=== PATIENT | male | born 1975 | race Caucasian/White ===

== ENCOUNTER → 2018-01-16 13:34 | Outpatient (CLI) | payer OTHER, SELFPAY ==
--- NOTE | 2018-01-16 13:40 | VDLE_ITS ---
Reason For Study: LEG SWELLING RIGHT LEFT CFV is compressible, spontaneous, phasic, CFV is compressible, spontaneous, phasic, competent and demonstrates normal competent, and demonstrates normal augmentation. augmentation. FV is compressible, spontaneous, phasic, FV is compressible, spontaneous, phasic, competent and demonstrates normal competent and demonstrates normal augmentation. augmentation. POP V is compressible, spontaneous, phasic, POP V is compressible, spontaneous, phasic, competent and demonstrates normal competent and demonstrates normal augmentation. augmentation. T/P Trunk is compressible. T/P Trunk is compressible. PTV is compressible. PTV is compressible. RT PerV is compressible. LT PerV is compressible. SFJ is INCOMPETENT with reflux greater SFJ is INCOMPETENT with reflux greater than .5 sec than .5 sec GSV is INCOMPETENT in prox thigh with reflux GSV is INCOMPETENT in prox thigh with reflux greater than .5 sec and diameter of .25 greater than .5 sec and diameter of .53 x .25 cm x .65 cm. GSV is partially compressible with GSV becomes diminutive from mid thigh to bright intraluminal echoes consistant with ankle unable to assess chronic clot. GSV becomes diminutive mid SSV is INCOMPETENT with reflux greater thigh to ankle. Unable to assess. than .5 sec and diameter of .25 x .26 cm. SSV is competent. Procedure Exam performed in department. Interpretation Summary Deep veins of the lower extremities are bilaterally patent and compressible segmentally. There is no evidence of deep vein thrombosis on either side. Valvular competence appears intact within the proximal deep venous systems bilaterally. Sapheno-femoral junctions are bilaterally incompetent . The greater saphenous veins are incompetent in the proximal thighs bilaterally. The right greater saphenous vein is diminutive from the right mid-thigh to the ankle, and too small to assess competency. The left greater saphenous vein is diminutive from the left mid-thigh to the ankle, is too small to assess competency, and demonstrates chronic venous changes. The right small saphenous vein is patent and incompetent. The left small saphenous vein is patent and competent. Ordering Physician: JASMINE MANNING Referring Physician: Jasmine Manning Performed By: Marcela Rdz RVT
--- NOTE | 2018-01-16 14:42 | RAD_ITS ---
STUDY: X-RAY - PELVIS AND LEFT HIP REASON FOR EXAM: Male, 42 years old. Left hip pain TECHNIQUE: Radiological exam, hip, unilateral, with pelvis when performed; 2 or 3 views. COMPARISON: None. FINDINGS: There is a non-specific bowel gas pattern. Normal visualized soft tissue structures. Normal bilateral iliac wings, sacroiliac joints and visualized sacrum. Normal bilateral superior and inferior pubic rami. Normal pubic symphysis. Normal bilateral ischial tuberosities. Normal visualized femoral head. Normal acetabulum. Normal hip joint. RAD/Hip 2-3 Views with Pelvis IMPRESSION: Normal x-ray examination of the pelvis and hip. Electronically Signed: Daniel Abarca MD at 15:24 EDT , Service support ,
== END ==
PROVIDERS: Visit Provider Nurse Practitioner
DX: I73.9 Peripheral vascular disease, unspecified (principal); M25.552 Pain in left hip; L03.90 Cellulitis, unspecified; R60.9 Edema, unspecified
CPT/HCPCS: 73502; 93970

== ENCOUNTER → 2018-10-19 21:04 | Outpatient (CLI) | payer OTHER, SELFPAY ==
[2018-08-13 17:59] VITALS: BMI 31.3
[2018-10-19 21:15] LABS: Absolute Lymphocyte Count 1.35 X10^3/ul (0.83-4.51); Absolute Neutrophil Count 7.5 X10^3/uL (2.0-7.7); Basophil# 0.03 X10^3/uL; Basophil% 0.3 % (0-1); Eosinophil# 0.45 X10^3/uL; Eosinophils% 4.5 % (0-5); Hematocrit 42.4 % (40-54); Hemoglobin 14.2 g/dl (13.0-16.5); Lymphocyte # 1.35 X10^3/ul (4.0); Lymphocyte % 13.6 % (19-41); Mean Corp Hgb Conc 33.5 g/gl (32-36); Mean Corpuscular Hgb 27.2 pg (27.0-32.0); Mean Corpuscular Volume 81.1 fL (80-94); Mean Platelet Vol. 11.7 fl (6.2-12.0); Monocyte# 0.61 X10^3/uL; Monocyte% 6.2 % (0-10); Neutrophil # 7.45 X10^3/uL (2.7-7.7); Neutrophil % 75.3 % (47-70); POSITIVE COUNT NO; POSITIVE DIFFERENTIAL NO; POSITIVE MORPHOLOGY NO; Platelet Count 162 K/mm3 (150-450); RBC Distribution Width CV 13.9 % (11.6-14.6); RBC Distribution Width SD 40.9 fl (35.1-43.9); Red Blood Count 5.23 M/mm3 (4.6-6.2); White Blood Count 9.9 K/mm3 (4.4-11.0)
[2018-10-19 21:26] LABS: ALB/GLOB Ratio 1.1 RATIO (0.9-2.4); AST(SGOT) 21 U/L (15-37); Alanine Aminotransfer ALT/SGPT 32 U/L (16-61); Alkaline Phosphatase 84 U/L (45-117); Anion Gap 8 (5-15); BUN 20 mg/dL (7-18); BUN/Creat Ratio 16.9 RATIO (10-20); Calcium,Total 9.5 mg/dL (8.5-10.1); Chloride 102 mmol/L (98-107); Cholesterol 126 mg/dL (200); Creatinine, Serum 1.18 mg/dL (0.70-1.30); EST Glomerular Filtration Rate 72 mL/min (>60); Est Glom Filt Rate - Afr Amer 87 mL/min (>60); Globulin 3.5 g/dL (2.2-4.2); Glucose 149 mg/dL (74-106); High Density Lipoprotein 54 mg/dL; Potassium 3.7 mmol/L (3.5-5.1); Protein, Total 7.5 g/dL (6.4-8.2); Sodium Level 139 mmol/L (136-145); Triglycerides 234 mg/dL; Very Low Density Lipoprotein 47 mg/dL (5-40)
--- OUTSIDE RECORDS SUMMARY | 2019-01-23 07:52 | XMS RPT_ITS ---
:1975 Author Organization [facility] Address [address] [place] [address] Phone Care Team Providers Name Role Phone Rio KINSEY, Pa Young Unavailable Reason for Visit Reason For Visit Description Start Date New - 1st visit with practice Preliminary reason for visit data, not yet signed by the author as of left hip pain Preliminary reason for visit data, not yet signed by the author as of Chief Complaint Chief Complaint Description Start Date left hip pain Preliminary chief complaint data, not yet signed by the author as of Instructions Instruction Description Start Date Patient advised to follow-up with Primary Care Physician for BMI management. Plan of Care Type Date Detail Appointment 02:00 PM Pa Pate MD, [facility], [address], Medications Medication Instructions Start Stop Generic Name NDC Provider Date Date ACETAMINOPHEN 1 tablet daily / ACETAMINOPHEN [id number] Janett EXTRA STRENGTH as needed for 26 [employer] 500 MG TABS pain VITAMIN D3 CAPS 1 capsule daily / CHOLECALCIFEROL [id number] Janett (as needed) 26 CAPS [employer] BENICAR HCT 1 tablet daily / OLMESARTAN [id number] Janett 20-12.5 MG TABS 26 MEDOXOMIL-HCTZ [employer] ROSUVASTATIN 1 tablet daily / ROSUVASTATIN [id number] Janett CALCIUM 10 MG 26 CALCIUM [employer] TABS METFORMIN HCL 1 tablet twice / METFORMIN HCL [id number] Janett 1000 MG TABS daily 26 [employer] Conditions or Problems Problem Name Problem Onset Status Entry Provider Comment Standard Annotate Code Date Date Description Trochanteric [id number] Active Pa M Trochanteric bursitis, left ( Rio bursitis hip CT) Allergies, Adverse Reactions, Alerts Allergy Name Reaction Start Date Severity Status Provider Description WHEAT (childhood Critical Active Janett Winters reaction) [employer] Social History Concept Description Observation Name Observation Value Units Start Date How many days of EXERCISEFREQ 7 days per week moderate to strenuous exercise, like a brisk walk, did you do in the last 7 days? Preliminary social history data, not yet signed by the author as of Vital Signs Date Name Value Unit Description BMI (Body Mass 28.35 kg/m2 Body Mass Index Index) [Ratio] Preliminary vital sign data, not yet signed by the author as of BP Diastolic 81 mm[Hg] blood pressure, diastolic Preliminary vital sign data, not yet signed by the author as of BP Systolic 136 mm[Hg] blood pressure, systolic Preliminary vital sign data, not yet signed by the author as of Heart Rate 85 /min pulse rate E&M Preliminary vital sign data, not yet signed by the author as of Height 74 [in_us] height E&M Preliminary vital sign data, not yet signed by the author as of Height 188 cm height in centimeters E&M Preliminary vital sign data, not yet signed by the author as of Weight Measured 220 [lb_av] weight E&M Preliminary vital sign data, not yet signed by the author as of Weight Measured 100 kg weight in kilograms E&M Preliminary vital sign data, not yet signed by the author as of Results Date Name Value Unit Range Flag Description Office Visit: New - 1st visit with practice, Rm: 5 MEDS REVIEW Done Documentation of current medications (procedure) Preliminary observation data, not yet signed by the author as of Preliminary observation data, not yet signed by the author as of XRAY HX of the left hip on xray history 01/16/2018 at [facility] Preliminary observation data, not yet signed by the author as of Clinical Summary: [facility] account number Clinical Lists Update: Preload Extended SMOK STATUS never smoker Tobacco smoking status KSIS Procedures Code Procedure Name Date Entry Date CPT-10428 Major Joint or Bursa injection G8730 Pain assessment documented as positive - follow-up documented G8427 Current medications documented 1036F Tobacco screening was negative - non user G8417 BMI documented as above normal parameters - follow-up documented G8783 Blood pressure within normal parameters - no follow-up required [facility]-[id number] Patient Encounter Medications Administered No information available. Immunizations No information available. Advance Directives There may be information available, but it has not been provided by the sender. Assessments There may be information available, but it has not been provided by the sender. Review of Systems There may be information available, but it has not been provided by the sender. Family History There may be information available, but it has not been provided by the sender. History of Past Illness There may be information available, but it has not been provided by the sender. History of Present Illness There may be information available, but it has not been provided by the sender.
--- OUTSIDE RECORDS SUMMARY | 2019-01-23 07:52 | XMS RPT_ITS ---
:1975 Author Organization OH[facility] Care Team Providers Name Role Phone Jasmine Manning ANTIQUE COLLECTOR-C Attending Unavailable Jasmine Manning ANTIQUE COLLECTOR-C Referring Unavailable Primay Care Physicia, No Primary Care Unavailable Jasmine Manning ANTIQUE COLLECTOR-C Attending Unavailable Primay Care Physicia, No Primary Care Unavailable Jasmine Manning ANTIQUE COLLECTOR-C Referring Unavailable Paty Bess Attending Unavailable Loid[place], Atka Attending Unavailable Jasmine Manning ANTIQUE COLLECTOR-C Referring Unavailable PROBLEMS PROBLEMS DATE TYPE CONDITION / CODE ATTENDING STATUS SOURCE 11/28/2018 Unknown I10 - Essential Loida, Quang Active [place] (primary) Community hypertension / Hospital I10(ICD-10) Repository 11/28/2018 Unknown E78.5 - Loida, Atka Active [place] Hyperlipidemia, Community unspecified / Hospital E78.5(ICD-10) Repository 11/28/2018 Unknown R60.0 - Localized Loida, Quang Active [place] edema / Community R60.0(ICD-10) Hospital Repository 10/22/2018 Unknown E78.00 - Pure Manning, Active [place] hypercholesterolem Jasmine ANTIQUE COLLECTOR-C Community ia, unspecified / Hospital E78.00(ICD-10) Repository 06/22/2018 Active Pain in right NA Active [facility] shoulder / Other [place] M25.511(ICD-10) Repository 06/22/2018 Active Syncope and NA Active [facility] collapse / Other [place] R55(ICD-10) Repository PROCEDURES PROCEDURES No Procedure Records FoundRESULTS RESULTS CARDIOLOGY VISIT Observed: 11/28/2018 Status: F Source: ADDIS REPORT 4:48 PM [facility] REPOSITORY [facility] [address] [place] [address]. [address] [place] [address] OFFICE VISIT Date of Service: 11/28/18 MR#: [id number] Acct: [id number] Name: PHI COURTNEY Rep #: [id number] : 1975 Provider: Quang Mariscal MD Age/Sex: 43/M [facility] [facility] Status: Signed HPI HPI Chief Complaint: Initial visit Details: PHI COURTNEY, is a 43 M who presents to the office today for an initial evaluation. He is a gentleman with a history of hypertension, hyperlipidemia or diabetes mellitus as well as cerebral palsy. He presents for an initial evaluation he has been having problems with pedal edema especially involving his left leg. He did have some vein work done a couple years ago. He had a history of vein stripping. He has had no neck arm or jaw discomfort suggest angina he has had occasional chest discomfort. This does not appear to be anginal in origin. He has not had any dizziness or diaphoresis no near syncope or syncope. His physical exam here today demonstrates clear lung funes regular rate and rhythm mild pedal edema on his left leg. His electrocardiogram demonstrates normal sinus rhythm with a rate of 79 bpm and no acute changes. Intake Vital Signs11/28/18 Height 6 ft 2 in 11/28/18 Weight: 236 lb 11/28/18 Body Mass Index (BMI) 30.2 11/28/18 Blood Pressure 120/70 11/28/18 Respiratory Rate 16 11/28/18 Pulse Rate 78 Intake Visit Reasons: PCP ref'd [facility] edema (needs late appt) Allergies No Known Allergies Allergy (Verified 11/28/18 15:23) Medications albuterol sulfate HFA 90 mcg/actuation aerosol inhaler 2 puff INHALATION Q6H PRN 06/26/18 [History Confirmed 06/26/18] metformin ER 1,000 mg tablet,extended release 24hr 1,000 mg PO QDAY 06/26/18 [History Confirmed 06/26/18] methocarbamol 750 mg tablet 750 mg PO ONCE 06/26/18 [History Confirmed 06/26/18] miconazole nitrate 2 % topical powder 1 applic TOPICAL QDAY 06/26/18 [History Confirmed 06/26/18] olmesartan 20 mg tablet 20 mg PO QDAY 06/26/18 [History Confirmed 06/26/18] polymyxin B sulfate 10,000 unit-trimethoprim 1 mg/mL eye drops 1 drp OPHTHALMIC Q3H 06/26/18 [History Confirmed 06/26/18] rosuvastatin 10 mg tablet 10 mg PO QDAY 06/26/18 [History Confirmed 06/26/18] tramadol 50 mg tablet 50 mg PO Q6H 06/26/18 [History Confirmed 06/26/18] amoxicillin 875 mg-potassium clavulanate 125 mg tablet 1 tab PO BID #20 tab 08/13/18 [Rx Confirmed 08/13/18] [facility] Medical History Essential (primary) hypertension (Chronic) Athletes foot (Chronic) Cellulitis (Chronic) Cerebral palsy (Chronic) Hyperlipidemia (Chronic) Obesity (Chronic) Surgical History History of incision and drainage (Resolved 2013) History of vein stripping (Resolved) S/p bilateral myringotomy with tube placement (Resolved) Family History Mother Diabetes Social History Smoking Status: Never smoker alcohol intake: current details: <two beers per week substance use type: does not use ROS Const Const: Negative for fatigue, weakness, difficulty sleeping, frequent falls, excessive sweating or headache(s) Eyes Eyes: Negative for loss of peripheral vision, transient loss of vision, blurry vision, tunnel vision or double vision ENT ENT: Negative for headache(s), dizziness, Nosebleed/epistaxis or balance problems Cardio Chest Pain: No Edema: Bilateral (non pitting L>R) Muscle aches with walking: None Resp Respiratory: Negative for SOB with activity, SOB at rest, SOB orthopnea\SOB lying down, paroxysmal nocturnal dyspnea or Cough GI GI: Negative nausea, heartburn, black,tarry stools or vomiting : Negative for hematuria Musc Musc: Negative for balance problems, muscle aches/ myalgia, muscle weakness or joint pain Skin Skin: Negative non-healing lesions, unusual bruising or rash Neuro Neuro: Positive for syncope (syncopal episode in 2017 24 hours after donating blood) and other (Had a syncopal episode several years ago after doanting blood); negative for weakness, frequent falls, headache(s), blurry vision, double vision, dizziness, lightheadedness, orthostatic symptoms, near syncope or lack of coordination [place] Hematologic/Lymphatic: Negative for easy bruising or easy bleeding Endo Endo: Negative for fatigue, excessive sweating or increased thirst/drinking Psych Psych: Negative for anxiety or depression Allergy Allergy/Immunology: Negative for hives, Negative for rash Cardiology Exam Const Appearance: cooperative, healthy appearing, well developed, well groomed and no acute distress Nutritional Appearance: well nourished and average body habitus Orientation: alert, awake and oriented x3 Head Head: normal to inspection, normocephalic and atraumatic Ears: hearing grossly normal bilaterally and external ears normal Nose: external nose normal, nasal mucous membranes and turbinates normal, nares normal, septum normal, no nasal discharge Face and Sinus: face symmetric Mouth: oral mucosae normal, tongue normal, oropharynx normal and moist mucous membranes Teeth and gingiva: dentition normal Throat: posterior oropharynx normal, tonsils normal and uvula midline Eyes General: appearance normal, both eyes and all related structures Eyelids: eyelids normal Conjunctivae: conjunctivae normal Pupils: PERRL, normal by confrontation and accommodation normal EOM: EOM intact bilaterally Neck Neck: normal visual inspection, trachea midline and no JVD JVD: +5 Carotids: normal carotid upstroke and bounding pulses Chest Chest inspection: normal inspection of the chest, symmetric chest movement and normal respiratory effort Auscultation: Bilateral: Clear to Auscultation Cardio Palpation: normal PMI Rate: regular rate Rhythm: regular rhythm Heart sounds: S1 normal, S2 normal and normal, physiologic split S2; negative rub, gallop or murmur GI GI: normal to inspection, soft, no hepatosplenomegaly and bowel sounds present Neuro General: alert, awake, oriented x3, no focal sensory deficit, gait normal and moves all extremities Skin Skin: no rashes or lesions noted Extremities Pulses: Normal: Right Femoral Pulse, Left Femoral Pulse, Right Dorsalis Pedis Pulse, Left Dorsalis Pedis Pulse, Right Posterior Tibial Pulse, Left Posterior Tibial Pulse, Right Radial Pulse, Left Radial Pulse Lower Extremity Edema: None: Bilateral Musculoskel Musculoskeletal: No joint tenderness Psych Psychological: normal affect Assessment AND Plan 1. Pedal edema R60.0 Plan He does have pedal edema which I suspect is likely secondary to his venous stripping. I have suggested JOSE hose stockings knee-high for him and for him to wear this as much as possible. He can have a refill for the above when the others are less effective. I would recommend an echocardiogram to assess his left ventricular function and pulmonary pressures though I do not think that his heart is playing a significant role in the above. Orders Orders: 2. Essential (primary) hypertension I10 Plan He does have a history of hypertension which is well controlled on the olmesartan this will be continued without making any changes. Orders Orders: 3. Hyperlipidemia E78.5 Plan He does have a history of diabetes as well as hyperlipidemia he remains on a statin which will be continued his most recent lipid profile demonstrated total cholesterol 126, triglycerides of 234, LDL of 25 and HDL of 54. I have advised him to watch his carbohydrate intake. No other changes will be made. Orders Orders: Plan Detail Follow Up prn Coding Level of Care Code Off vis,new,level 4 Diagnoses Pedal edema R60.0 Essential (primary) hypertension I10 Hyperlipidemia E78.5 Coding Level of Care Code Off vis,new,level 4 Diagnoses Pedal edema R60.0 Essential (primary) hypertension I10 Hyperlipidemia E78.5 Supplemental Info Supplemental Information Labs LDL Cholesterol 25 mg/dL (0-130) 10/19/18 HDL Cholesterol 54 mg/dL (40-) 10/19/18 Triglycerides 234 mg/dL (-199) H 10/19/18 VLDL Cholesterol 47 mg/dL (5-40) H 10/19/18 Diagnostics Electrocardiogram 11/28/18 Venous Doppler Study 01/16/18 11/28/18 1648 <Electronically signed by Quang Mariscal MD> Date Quang Mariscal MD Cosigner Signature: Date (if applicable) CC: TAIWO Manning CBC W/DIFF, AUTOMATED Collected: 10/19/2018 Status: F Source: [place] 4:30 PM [facility] REPOSITORY TYPE CODE TESTS RESULT OUT OF RANGE REFERENCE UNITS LAB L100.1000 4.4-11.0 K/mm3 Normal WBC 9.9 LAB L100.1200 4.6-6.2 M/mm3 Normal RBC 5.23 LAB L100.1300 13.0-16.5 g/dl Normal HGB 14.2 LAB L100.1400 40-54 % Normal HCT 42.4 LAB L100.1500 80-94 fL Normal MCV 81.1 LAB L100.1600 27.0-32.0 pg Normal MCH 27.2 LAB L100.1700 32-36 g/gl Normal MCHC 33.5 LAB L100.1810 11.6-14.6 % Normal RDW CV 13.9 LAB L100.1820 35.1-43.9 fl Normal RDW SD 40.9 LAB L100.1900 150-450 K/mm3 Normal PLT 162 LAB L100.2000 6.2-12.0 fl Normal MPV 11.7 LAB L100.2100 47-70 % High NEUT% 75.3 LAB L100.2200 19-41 % Low LY% 13.6 LAB L100.2300 0-10 % Normal MONO% 6.2 LAB L100.2400 0-5 % Normal EO% 4.5 LAB L100.2500 0-1 % Normal BASO% 0.3 LAB L100.2550 0.0-0.9 % Normal IM GRAN % 0.100 Result Comment: IG% - Immature Granulocytes (promyelocytes, myelocytes and metamyelocytes) > 1% indicates that a LEFT SHIFT is Present. LAB L100.2620 2.0-7.7 X10 3/uL Normal Absolute Neut 7.5 LAB L100.2720 0.83-4.51 X10 3/ul Normal Absolute Lymph 1.35 Performed By: #### L100.0100 #### [facility] [place], [address] COMPREHENSIVE METABOLIC Collected: 10/19/2018 Status: F Source: LUC[facility] 4:30 PM [facility] REPOSITORY TYPE CODE TESTS RESULT OUT OF RANGE REFERENCE UNITS LAB L501.0100 74-106 mg/dL High GLU 149 Result Comment: Fasting Glucose result greater than or equal to 126 mg/dL suggests DIABETES MELLITUS per A.D.A. criteria. Please note revised GLUCOSE reference range effective 2017. LAB L501.1000 7-18 mg/dL High BUN 20 LAB L501.1100 0.70-1.30 mg/dL Normal CREAT,SERUM 1.18 Result Comment: The validity of the calculated GFR AND GFRAA in patients over 70 years has not been determined. Clinical correlation is essential. LAB L501.1110 >60 mL/min Normal EST GFR 72 Result Comment: Non- GFR Calc LAB L501.1115 >60 mL/min Normal EST GFR - AA 87 Result Comment: GFR Calc LAB L501.1300 10-20 RATIO Normal BUN/CRE 16.9 LAB L501.1500 6.4-8.2 g/dL T Normal PROT 7.5 LAB L501.1800 3.2-5.0 g/dL Normal ALB 4.0 LAB L501.1950 2.2-4.2 g/dL Normal GLOB 3.5 LAB L501.2000 0.9-2.4 RATIO Normal A/G 1.1 LAB L501.2200 8.5-10.1 mg/dL CA Normal 9.5 LAB L501.4100 15-37 U/L Normal AST 21 LAB L501.4305 45-117 U/L Normal ALK P 84 LAB L501.4405 16-61 U/L Normal ALT 32 LAB L501.4600 0.20-1.00 mg/dL T Normal BILI 0.70 LAB L501.5300 136-145 mmol/L NA Normal 139 LAB L501.5600 3.5-5.1 mmol/L K Normal 3.7 LAB L501.5900 98-107 mmol/L CL Normal 102 LAB L501.6100 21.0-32.0 mmol/L Normal CO2 29.0 LAB L501.6200 5-15 Normal GAP 8 Performed By: #### L500.4050, L500.4100 #### [facility] [address] [place], [place], [address] LIPID PROFILE Collected: 10/19/2018 Status: F Source: [facility] 4:30 PM [facility] REPOSITORY TYPE CODE TESTS RESULT OUT OF RANGE REFERENCE UNITS LAB L501.4900 200 mg/dL Normal CHOL 126 Result Comment: <200 mg/dL Desirable 200-240 mg/dL Borderline >240 mg/dL High Risk LAB L501.5000 mg/dL High TRIG 234 Result Comment: The drugs N-Acetylcysteine and Metamizole may falsely depress this assay. Serum Triglycerides Reference Interval Normal <150 mg/dL Borderline high 150 - 199 mg/dL High 200 - 499 mg/dL Very High > or = 500 mg/dL LAB L501.6400 mg/dL Normal HDL 54 Result Comment: The drugs N-Acetylcysteine and Metamizole may falsely depress this assay. Reference Range HDL <40 mg/dL Low HDL Cholesterol HDL >or= 60 mg/dL High HDL Cholesterol LAB L501.6500 0-130 mg/dL Normal LDL 25 LAB L501.6600 5-40 mg/dL High VLDL 47 Performed By: #### L500.4050, L500.4100 #### [facility] [address] [facility] [place], [place], [address] OFFICE VISIT Observed: 08/13/2018 Status: F Source: ADDIS 9:20 PM [facility] REPOSITORY After Hours [facility] [address] [place] [address] OFFICE VISIT Date of Service: 08/13/18 MR#: [id number] Acct: [id number] Name: PHI COURTNEY Rep #: [id number] : 1975 Provider: TAIWO Manning Age/Sex: 43/M Location: [facility] Status: Signed Intake Vital Signs08/13/18 Height 6 ft 2 in 08/13/18 Weight: 244 lb Intake Visit Reasons: sick for a while Chief Complaint: congestion, runny nose, headache, tired, coughing Allergies No Known Allergies Allergy (Verified 06/26/18 12:16) Medications albuterol sulfate HFA 90 mcg/actuation aerosol inhaler 2 puff INHALATION Q6H PRN 06/26/18 [History Confirmed 06/26/18] metformin ER 1,000 mg tablet,extended release 24hr 1,000 mg PO QDAY 06/26/18 [History Confirmed 06/26/18] methocarbamol 750 mg tablet 750 mg PO ONCE 06/26/18 [History Confirmed 06/26/18] miconazole nitrate 2 % topical powder 1 applic TOPICAL QDAY 06/26/18 [History Confirmed 06/26/18] olmesartan 20 mg tablet 20 mg PO QDAY 06/26/18 [History Confirmed 06/26/18] polymyxin B sulfate 10,000 unit-trimethoprim 1 mg/mL eye drops 1 drp OPHTHALMIC Q3H 06/26/18 [History Confirmed 06/26/18] rosuvastatin 10 mg tablet 10 mg PO QDAY 06/26/18 [History Confirmed 06/26/18] tramadol 50 mg tablet 50 mg PO Q6H 06/26/18 [History Confirmed 06/26/18] amoxicillin 875 mg-potassium clavulanate 125 mg tablet 1 tab PO BID #20 tab 08/13/18 [Rx Confirmed 08/13/18] PFSH Medical History Athletes foot (Acute) Cellulitis (Acute) Cerebral palsy (Acute) Hyperlipidemia (Acute) Hypertension (Chronic) Surgical History S/p bilateral myringotomy with tube placement (Acute) Family History Mother Diabetes Social History Smoking Status: Never smoker alcohol intake: current details: <two beers per week substance use type: does not use HPI HPI (General) HPI Chief Complaint: congestion, runny nose, headache, tired, coughing HPI: PHI COURTNEY, is a 43 M who presents to the office today for not feeling well ROS Const Constitutional: Positive for headache(s), fatigue and anorexia ENT ENT: Positive for headache(s), ear pain (Right), nasal congestion, post nasal drip, nasal discharge, hoarseness, facial pain and sinus pain Resp Respiratory: Positive for cough (yellow adn clear) Cough: Yes productive Musc Musculoskeletal: Positive for back pain Neuro Neurology: Positive for headache(s) Endo Endo: Yes fatigue Exam Const Constitutional: Yes cooperative, Yes ill appearing Nutritional Appearance: Yes well nourished Orientation: Yes oriented x3 HENMT Head: Yes normocephalic Ear: Yes hearing grossly normal bilaterally TM-Right: normal TM-Left: red Pinna-Right: within normal limits Pinna-Left: within normal limits Face: Yes normal facial exam, Yes sinuses nontender, Yes tenderness Nose: Yes external nose normal Eyes General: Yes appearance normal, both eyes and all related structures Resp Effort AND Inspection: Yes normal respiratory effort Auscultation: Yes clear to auscultation bilaterally and bronchial breath sounds Cardio Palpitation: Yes normal PMI Rate: Yes regular rate Rhythm: Yes regular rhythm GI Inspection: Yes normal to inspection Palpation: Yes soft and no hepatosplenomegaly Skin General: no rashes or lesions noted Extrem General: Yes normal to inspection Neuro General: Yes oriented x3 Psych Appearance: Positive grossly normal Mood: Positive congruent mood Affect: Positive normal affect Assessment AND Plan Problems 1. Acute otitis media, left H66.92 2. Acute non-recurrent maxillary sinusitis J01.00 3. Cough with fever R05; R50.9 Patient Instructions Take the antibiotics till gone with food or after eating Push the fluids well Use the inhaler as needed for coughing or Shortness of breath. Off work provided follow up as needed use Pseudafed 30 mg take 2 2 x a day for the postnasal drip and the congestion headaches / Medications New: Coding Level of Care Code Off vis,est,level 3 Diagnoses Acute otitis media, left H66.92 Acute non-recurrent maxillary sinusitis J01.00 Chronicity: acute Recurrence: non-recurrent Cough with fever R05; R50.9 08/13/182119 <Electronically signed by Jasmine JACOB> Date Jasmine JACOB CC: OFFICE VISIT Observed: 07/05/2018 Status: F Source: LUCINDA 4:07 PM [facility] REPOSITORY After Hours [facility] [address] [place] [address] OFFICE VISIT Date of Service: 06/27/18 MR#: [id number] Acct: [id number] Name: PHI COURTNEY Rep #: [id number] : 1975 Provider: TAIWO Manning Age/Sex: 42/M Location: [place] Status: Signed Intake Vital Signs06/27/18 Height 6 ft 2 in 06/27/18 Weight: 236 lb Intake Visit Reasons: F/U [place]KEY[place] Allergies No Known Allergies Allergy (Verified 06/26/18 12:16) Medications albuterol sulfate HFA 90 mcg/actuation aerosol inhaler 2 puff INHALATION Q6H PRN 06/26/18 [History Confirmed 06/26/18] metformin ER 1,000 mg tablet,extended release 24hr 1,000 mg PO QDAY 06/26/18 [History Confirmed 06/26/18] methocarbamol 750 mg tablet 750 mg PO ONCE 06/26/18 [History Confirmed 06/26/18] miconazole nitrate 2 % topical powder 1 applic TOPICAL QDAY 06/26/18 [History Confirmed 06/26/18] olmesartan 20 mg tablet 20 mg PO QDAY 06/26/18 [History Confirmed 06/26/18] polymyxin B sulfate 10,000 unit-trimethoprim 1 mg/mL eye drops 1 drp OPHTHALMIC Q3H 06/26/18 [History Confirmed 06/26/18] rosuvastatin 10 mg tablet 10 mg PO QDAY 06/26/18 [History Confirmed 06/26/18] tramadol 50 mg tablet 50 mg PO Q6H 06/26/18 [History Confirmed 06/26/18] PFSH Medical History Athletes foot (Acute) Cellulitis (Acute) Cerebral palsy (Acute) Hyperlipidemia (Acute) Hypertension (Chronic) Surgical History S/p bilateral myringotomy with tube placement (Acute) Family History Mother Diabetes Social History Smoking Status: Never smoker alcohol intake: current details: <two beers per week substance use type: does not use HPI HPI (General) HPI HPI: PHI COURTNEY, is a 42 M who presents to the office today for a workmans comp problem and did not tell the nurse at registration what it was for .We do not do workmans comp therefore unable to see 07/05/18 6517 <Electronically signed by Jasmine JACOB> Date Jasmine JACOB CC: OFFICE VISIT Observed: 06/26/2018 Status: F Source: LUCINDA 4:12 PM [facility] REPOSITORY After Hours [facility] [address] [place] [address] OFFICE VISIT Date of Service: 06/26/18 MR#: [id number] Acct: [id number] Name: PHI COURTNEY Rep #: [id number] : 1975 Provider: TAIWO Huffman Age/Sex: 42/M Location: [place] Status: Signed Intake Vital Signs06/26/18 Blood Pressure 142/92 06/26/18 Blood Pressure Position Standing 06/26/18 Blood Pressure 138/94 Eye Acuity Left eye w/o correction: 20/20 Right eye w/o correction: 20/20 Both eyes w/o correction: 20/20 Intake Visit Reasons: PINK EYE Chief Complaint: Patient here with pink eye symptoms. Is patient in pain?: No Allergies No Known Allergies Allergy (Verified 06/26/18 12:16) Medications albuterol sulfate HFA 90 mcg/actuation aerosol inhaler 2 puff INHALATION Q6H PRN 06/26/18 [History Confirmed 06/26/18] metformin ER 1,000 mg tablet,extended release 24hr 1,000 mg PO QDAY 06/26/18 [History Confirmed 06/26/18] methocarbamol 750 mg tablet 750 mg PO ONCE 06/26/18 [History Confirmed 06/26/18] miconazole nitrate 2 % topical powder 1 applic TOPICAL QDAY 06/26/18 [History Confirmed 06/26/18] olmesartan 20 mg tablet 20 mg PO QDAY 06/26/18 [History Confirmed 06/26/18] polymyxin B sulfate 10,000 unit-trimethoprim 1 mg/mL eye drops 1 drp OPHTHALMIC Q3H 06/26/18 [History Confirmed 06/26/18] rosuvastatin 10 mg tablet 10 mg PO QDAY 06/26/18 [History Confirmed 06/26/18] tramadol 50 mg tablet 50 mg PO Q6H 06/26/18 [History Confirmed 06/26/18] [facility] Medical History Athletes foot (Acute) Cellulitis (Acute) Cerebral palsy (Acute) Hyperlipidemia (Acute) Hypertension (Chronic) Surgical History S/p bilateral myringotomy with tube placement (Acute) Family History Mother Diabetes Social History Smoking Status: Never smoker alcohol intake: current details: <two beers per week substance use type: does not use HPI HPI (General) HPI Chief Complaint: Patient here with pink eye symptoms. HPI: PHI COURTNEY, is a 42 M who presents to the office today for symptoms of pink eye. Yesterday, began with pink eye, eye matted closed when he woke up. Denies fever or chills, no nausea or vomiting. Hadn't been around anyone with pink eye or sick. Denies rhinorrhea, headache, earache, or sinus drainage. No sore throat. Had polymyxin B-TMP drops at home from previously needed in November 2017. Started the drops yesterday and eye is improving, stills some drainage. 80% better since yesterday. This past Monday had been to ER for right shoulder pain after he fell. Given tramadol 50 mg #12 on po q 6 hours prn and methocarbamol 750 mg one every 6 hours prn as needed, #12. Has 4 tablets each left. Pain in shoulder is better. Hasn't tried heating pad or ice. Hasn't switched over to tylenol or ibuprofen. 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 Xrays and EKG were done. This all occurred after he fallen after standing up with picking up something, he blacked out and fell down. He was told to follow up with orthopedic, he has name at home. ROS Const Constitutional: No chills, body ache, fever(s), fatigue, decreased energy, headache(s), night sweats, weakness, excessive sweating or weight change Eyes Eyes: No blurry vision or change in vision ENT ENT: No headache(s), abnormal hearing, ear pain, nasal congestion, sinus pressure, nose pain, difficulty swallowing or sore throat Resp Respiratory: No cough, chest congestion, pain on inspiration, shortness of breath or hemoptysis Cardio Cardiology: Positive for lightheadedness; no excessive sweating, chest pain at rest, chest pain with exertion, leg pain with exertion, irregular heart rhythm, slow heart rate, fast heart rate or palpitations Gastro GI: No Difficulty Swallowing, No abdominal pain, No change in bowel habits Genitourinary: No difficulty urinating or burning urination Musc Musculoskeletal: Positive for joint pain; no abnormal walking, back pain, limited range of motion or joint swelling Skin Skin: No rash or lesions Neuro Neurology: No headache(s), weakness, abnormal hearing, abnormal walking, abnormal movements, abnormal speech, behavioral changes, lack of coordination or unsteady gait/balance Psych Psychiatric: No behavioral changes, No anxiety, No depression Endo Endo: No fatigue, No excessive sweating, No cold intolerance, No heat intolerance, No increased thirst/drinking, No increased hunger, No increased urine leakage Aller/Imm Allergy/Immunologic: No seasonal allergy symptoms Pedro Pablo/Lymp Hematologic/Lymphatic: No easy bleeding, easy bruising or enlarged lymph nodes Exam Const Constitutional: Yes cooperative, Yes healthy appearing, Yes comfortable, Yes no acute distress, Yes well developed, Yes well groomed Nutritional Appearance: Yes average body habitus Orientation: Yes alert, awake and oriented x3 [facility] Head: Yes normocephalic, Yes atraumatic Ear: Yes hearing grossly normal bilaterally Pinna-Right: within normal limits Pinna-Left: within normal limits Face: Yes normal facial exam Nose: Yes external nose normal Mouth: Yes oral mucosae normal Teeth and Gingiva: Yes dentition normal Neck Neck: normal visual inspection, no lymphadenopathy Thyroid: thyroid normal Carotid: Yes normal carotid upstroke Eyes Pupils: Yes PERRLA Conjunctivae: Yes redness (Right eye), Yes other (clear discharge) Chest Chest palpation AND inspection: Yes normal inspection of the chest Resp Effort AND Inspection: Yes normal respiratory effort and symmetric chest movement Auscultation: Yes clear to auscultation bilaterally Cardio Palpitation: Yes normal PMI Rate: Yes regular rate Rhythm: Yes regular rhythm Heart Sounds: Yes S1 normal and S2 normal GI Inspection: Yes normal to inspection Auscultation: Yes normal bowel sounds Musc Cervical Spine: Yes cervical ROM normal Thoracic/Lumbar Spine: Yes thoracic and lumbar spine normal to inspection and thoraco-lumbar ROM normal Skin General: no rashes or lesions noted Wounds: Yes no wounds Hair: Yes normal Nails: Yes normal Extrem General: Yes normal to inspection and normal gait Neuro General: Yes alert, oriented x3 and CN's II-XI intact bilaterally Cranial Nerves: Yes CN's II-XI intact bilaterally and PERRLA Gait: Yes normal gait Motor: No weakness Sensory Exam: Yes no sensory deficits noted Psych Appearance: Positive grossly normal Mental Status: Positive mental status grossly normal Mood: Positive congruent mood Affect: Positive normal affect Speech and Movement: Yes speech and movement normal Thought Process: Yes normal Thought Content: Yes normal Judgment: Yes judgment good Assessment AND Plan Problems 1. Conjunctivitis of right eye, unspecified conjunctivitis type H10.9 2. Right shoulder pain, unspecified chronicity M25.511 Patient Instructions continue polymyxin eye drops for next 3-5 days follow up with locator specialist as he was already referred to by ER if after using heat, ice, ibuprofen next 3-4 days as discussed and symptoms persist follow up with patient's provider, Joce Manning regarding recent fall, appointment for 06/26/18 1612 <Electronically signed by Lissa JACOB> Date Lissa JACOB CC: PROGRESS Observed: 06/26/2018 Status: COMPLETED Source: [place] 10:10 AM CLINIC OTHER CAMPUS REPOSITORY O ID: [id number] Author: Linda Huertas Service: (none) Author Type: LICENSED NURSE Type: Progress Notes Filed: 06/26/2018 10:14 AM Note Text: ED Follow Up: Patient discharged from [facility] ED on 06/22/18. 1. How are you feeling since your ED visit? Patient stated he did not wish to make a follow up appointment with PCP at this time. Clinical Impressions Acute pain of right shoulder Syncope, unspecified syncope type Disposition Discharge Condition: Stable ? ED After Visit Summary (Printed 06/22/2018) ? Follow-Ups: Follow up with Kade Cruz MD (Orthopedics) Medication Changes methocarbamol 750 mg ORAL EVERY 6 HOURS NEEDED tramadol HCl 50 mg ORAL EVERY 6 HOURS NEEDED Medication List at Discharge Care Timeline 1315? Arrived 1425? XR SHOULDER GENERAL 3V OR MORE AP/TRUE AP/OTHER RT XR HUMERUS 2V AP/LAT RT 1429? hydrocodone/acetaminophen 1 tablet 1629? Discharged MDM / Disposition / Plan ? MDM ? The patient was DISCHARGED: Counseled patient regarding radiology results AND suspected diagnosis AND need for follow-up. Discharged home with verbal and written instructions. They were instructed to return as needed for persistent or worsening symptoms or any new concerns. Given a prescription for the following medication(s): Tramadol Condition at time of disposition: stable ? SIGNATURE: Amisha Herron PA-C ? Amisha Herron 06/24/18 1112 CNPTOUTREACH Observed: 06/26/2018 Status: COMPLETED Source: [place] 12:00 AM CLINIC OTHER CAMPUS REPOSITORY Patient Outreach ([facility]) PHI COURTNEY ([id number]) 1975 [facility] Date Time Provider Department 06/26/18 LINDA HUERTAS (BENITEZ) [facility] During your visit today, we recorded the following information about you: Linda Huertas LPN 06/26/2018 10:14 AM Signed ED Follow Up: Patient discharged from [facility] ED on 06/22/18. 1. How are you feeling since your ED visit? Patient stated he did not wish to make a follow up appointment with PCP at this time. Clinical Impressions Acute pain of right shoulder Syncope, unspecified syncope type Disposition Discharge Condition: Stable ? ED After Visit Summary (Printed 06/22/2018) ? Follow-Ups: Follow up with Kade Cruz MD (Orthopedics) Medication Changes methocarbamol 750 mg ORAL EVERY 6 HOURS NEEDED tramadol HCl 50 mg ORAL EVERY 6 HOURS NEEDED Medication List at Discharge Care Timeline 1315? Arrived 1425? XR SHOULDER GENERAL 3V OR MORE AP/TRUE AP/OTHER RT XR HUMERUS 2V AP/LAT RT 1429? hydrocodone/acetaminophen 1 tablet 1629? Discharged MDM / Disposition / Plan ? MDM ? The patient was DISCHARGED: Counseled patient regarding radiology results AND suspected diagnosis AND need for follow-up. Discharged home with verbal and written instructions. They were instructed to return as needed for persistent or worsening symptoms or any new concerns. Given a prescription for the following medication(s): Tramadol Condition at time of disposition: stable ? SIGNATURE: Amisha Herron PA-C ? Amisha Mead) Germaine 06/24/18 1112 Allergies As of Date: 06/26/2018 Noted Allergy Reaction JANUVIA (SITAGLIPTIN) 06/23/2016 14 - Other: See Comments Comments: Confusional state Date Reviewed: 06/22/2018 Reviewed by: Madhuri (Rn) KHADIJAH Lamar - Fully Assessed Reason for Visit: Transition Of Care [4074] Cmt: ED follow up Prescriptions as of 06/26/2018 Sig: CARBAMIDE PEROXIDE 6.5 % EAR * Use 4-5 Drops in the ears dedra* BENICAR HCT 20 MG-12.5 MG TAB* Take 1 tablet by mouth once d* MAGNESIUM OXIDE 400 MG (241.3* Take 400 mg by mouth once randal* LORATADINE 10 MG TABLET Take 10 mg by mouth once helder* ONDANSETRON HCL 4 MG TABLET Take 4 mg by mouth every 8 ho* PANTOPRAZOLE 40 MG TABLET,DEL* Take 40 mg by mouth once helder* Problem List As Of Date 06/26/2018 Noted Resolved Peroneal tendonitis [M76.70] INVALID FOR*03/20/2015 More... More... Tachycardia [R00.0] INVALID FOR*03/20/2015 Priority: Moderate More... Type 2 diabetes mellitus (HCC) [E11.9] INVALID FOR* Priority: D More... Hyponatremia [E87.1] INVALID FOR*03/23/2015 Priority: E More... HTN (hypertension) [I10] INVALID FOR* Priority: Mild Anemia [D64.9] INVALID FOR*05/04/2015 Priority: I More... Nausea [R11.0] INVALID FOR*05/04/2015 More... Carbuncle and furuncle of leg [L02.429, L02.439]INVALID FOR*05/04/2015 Disorientation [R41.0] INVALID FOR*09/15/2015 Priority: A More... Cellulitis [L03.90] INVALID FOR*09/15/2015 Priority: Severe More... Hyponatremia [E87.1] INVALID FOR*06/02/2015 Priority: B More... Sepsis (HCC) [A41.9] INVALID FOR*09/15/2015 Priority: Very Severe More... Tachycardia [R00.0] INVALID FOR* Priority: Moderate Anemia [D64.9] INVALID FOR* More... Obesity [E66.9] INVALID FOR* Encounter Status:Closed by LINDA HUERTAS LPN on 06/26/18 ED PROV NOTE Observed: 06/22/2018 Status: COMPLETED Source: [place] 4:29 PM CLINIC OTHER CAMPUS REPOSITORY HNO ID: [id number] Author: Amisha Mead) Germaine Service: (none) Author Type: Physician Marine Gear Keeper Type: ED Provider Notes Filed: 06/24/2018 11:12 AM Note Text: ED Provider Note Patient Name: Phi Courtney SERVICE DATE: 06/22/18 History Patient presents with: Fall Arm Pain This is a 42 y/o right hand dominant male here with acute pain to right upper arm/shoudler following syncopal episode that occurred while at work just prior to coming into ED. He states that he has passed out before and does not wish to have this evaluated despite strong encouragement from myself. He states his right shoulder is very painful and he just wants an xray and something for the pain. Denies dizziness, headache, neck or back pain, chest pain, dyspnea, weakness or numbness in extremities, abdominal pain or pain/swelling in legs. No current AC therapy. PAST MEDICAL HISTORY Diagnosis Date - Acquired hypothyroidism - Acute confusion - Allergic rhinitis - Claritin - Anemia - Ankle joint pain - Naproxen, Ankle Brace - Bronchospasm - Carbuncle and furuncle of leg 04/08/2015 - Cellulitis - Cellulitis and abscess of foot excluding toe - Cellulitis of left thigh 03/19/2015 No skin breaks on exam No areas of fluctuance There are areas of wetness between toes and in groin but not connected to site of infection Plan: - F/u ID consult - continue clindamycin and cefazolin - PICC today in preparation of potential CoPAT - Cerebral palsy (HCC) - Closed fracture of medial malleolus - Cough - Deficiency of testosterone biosynthesis - Developmental articulation disorder - since - Fatigue - Foot pain - Hip pain - Hydrocele of testis - left (u/s done) - Hypercholesterolemia - Hypomagnesemia - Hyponatremia - Injury of thigh - Known medical problems Cellulitis and abscess of lower leg- Will need IV antibiotics (? I AND D) Dr. 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) - With normal testical size - NEEDS A KARYOTYPE - Type 2 diabetes mellitus (HCC) - Varicose veins of bilateral lower extremities with other complications - Vitamin D deficiency PAST SURGICAL HISTORY Procedure Laterality Date - PAST SURGICAL HISTORY OF 1979 R ear surgery - PAST SURGICAL HISTORY OF 04/03/2015 I ANDD complex carbuncle left medial thigh, - PICC LINE INSERT/CONSULT 03/23/2015 FAMILY HISTORY Problem Relation Age of Onset - other (Cancer - other [Other]) Unknown - other (Diabetes mellitus [Other]) Unknown - other (CA (?) [Other]) Maternal Grandmother - other (dm11 [Other]) Unknown Social History Social History Main Topics - Smoking status: Never Smoker - Smokeless tobacco: Never Used - Alcohol use Yes Comment: Type: beer; Has 2 drinks/week on average; drinks at home- 1 beer twice weekly. - Drug use: No Comment: no reported history - Sexual activity: Not on file ALLERGIES Allergen Reactions - Januvia [Sitaglipti* Other: See Comments Confusional state Review of Systems Constitutional: Negative for chills and fever. Eyes: Negative for visual disturbance. Respiratory: Negative for shortness of breath. Cardiovascular: Negative for chest pain. Gastrointestinal: Negative for abdominal pain, nausea and vomiting. Musculoskeletal: Positive for arthralgias (acute pain to right shoulder). Negative for back pain and neck pain. Skin: Negative for wound. Neurological: Positive for syncope. Negative for dizziness, weakness, light-headedness and headaches. Hematological: Does not bruise/bleed easily. Psychiatric/Behavioral: Negative for confusion. Physical Exam BP 135/80 Pulse 88 Temp (Src) 98.6 (Oral) Resp 16 Wt 240 lb (108.9kg) SpO2 96% Physical Exam Constitutional: He is oriented to person, place, and time. He appears well-developed and well-nourished. No distress. HENT: Head: Normocephalic and atraumatic. Eyes: Pupils are equal, round, and reactive to light. EOM are normal. Neck: Neck supple. Cardiovascular: Normal rate and regular rhythm. Pulmonary/Chest: Effort normal and breath sounds normal. Abdominal: Soft. He exhibits no distension and no mass. There is no tenderness. There is no guarding. Musculoskeletal: Focused RUE exam: there is some bruising along lateral upper arm. Tenderness to palpation over anterior and lateral shoulder. Patient self splinting right arm against body and apprehension to allow be to perform PROM of shoulder due to pain. Radial pulse 2+. Cap refill brisk. Motor and sensation intact distally. Hand grasp intact. Neurological: He is alert and oriented to person, place, and time. Awake and alert. Skin: Skin is warm and dry. Psychiatric: He has a normal mood and affect. His behavior is normal. Nursing note and vitals reviewed. Diagnostic Testing XR SHOULDER GENERAL 3V OR MORE AP/TRUE AP/OTHER RT (Final result) Result time 06/22/18 14:31:03 Final result by [facility] [place] Provider (06/22/18 14:31:03) Impression: IMPRESSION: UNREMARKABLE RADIOGRAPHS OF THE RIGHT HUMERUS AND RIGHT SHOULDER. Nuclear Medicine Technician: GABY ? Transcribe Date/Time: Jun 22 2018 ?2:27P Dictated by : VARUN DYKES MD This examination was interpreted and the report reviewed and electronically signed by: VARUN DYKES MD on Jun 22 2018 ?2:28PM ?EST Procedures ED Course / Clinical Impression -Placed in arm sling, discussed importance of performing ROM of shoulder throughout day to avoid acute capsulitis. Discussed RICE therapy. Clinical Impressions as of Jun 24 1106 Acute pain of right shoulder Syncope, unspecified syncope type MDM / Disposition / Plan MDM The patient was DISCHARGED: Counseled patient regarding radiology results AND suspected diagnosis AND need for follow-up. Discharged home with verbal and written instructions. They were instructed to return as needed for persistent or worsening symptoms or any new concerns. Given a prescription for the following medication(s): Tramadol Condition at time of disposition: stable SIGNATURE: MALLIKA Barnhart) Germaine 06/24/18 1112 ED NOTE Observed: 06/22/2018 Status: COMPLETED Source: [place] 4:28 PM [facility] OTHER CAMPUS REPOSITORY HNO ID: [id number] Author: Khloe ReyesRn) KHADIJAH Granados Service: (none) Author Type: Registered Nurse Type: ED Notes Filed: 06/22/2018 4:29 PM Note Text: Patient in stable condition upon discharge. resp even and unlabored. No distress noted. Sling applied for comfort. Patient states pain has decreased. Discharge and follow up reviewed, plan of care is agreed upon. Patient thankful for care upon discharge. XR HUMERUS 2V AP/LAT Observed: 06/22/2018 Status: F Source: [place] RT 2:25 PM CLINIC OTHER [place] REPOSITORY * * *Final Report* * * DATE OF EXAM: Jun 22 2018 2:25PM MDX 5355 - XR HUMERUS 2V AP/LAT RT / PROCEDURE REASON: Upper arm trauma, fx suspected, initial exam * * * * Physician Interpretation * * * * EXAMINATION: XR SHLDR >/=3V AP/KALINA AP/OTHR RT, XR HUMERUS 2V AP/LAT RT HISTORY: PT STS HE FELL TODAY AFTER BLACKING OUT, RT SHOULDER \EandE\ HUMERUS PAIN Shoulder pain, traumatic . TECHNIQUE: XR SHLDR >/=3V AP/KALINA AP/OTHR RT, XR HUMERUS 2V AP/LAT RT Laterality: RIGHT Number of different views (projections): SHOULDER-3, HUMERUS-2 M: XB_1 COMPARISON: None. RESULT: There is no acute fracture or subluxation. The glenohumeral and acromioclavicular joints are intact. The acromiohumeral interval is maintained. No lytic or blastic osseous lesion. The soft tissues are grossly unremarkable. IMPRESSION: UNREMARKABLE RADIOGRAPHS OF THE RIGHT HUMERUS AND RIGHT SHOULDER. Nuclear Medicine Technician: GABY Transcribe Date/Time: Jun 22 2018 2:27P Dictated by : VARUN DYKES MD This examination was interpreted and the report reviewed and electronically signed by: VARUN DYKES MD on Jun 22 2018 2:28PM EST [id number] XR SHLDR >/=3V Observed: 06/22/2018 Status: F Source: [place] AP/KALINA AP/OTHR RT 2:25 PM CLINIC OTHER CAMPUS REPOSITORY * * *Final Report* * * DATE OF EXAM: Jun 22 2018 2:25PM MDX 5253 - XR SHLDR >/=3V AP/KALINA AP/OTHR RT / PROCEDURE REASON: Shoulder pain, traumatic * * * * Physician Interpretation * * * * EXAMINATION: XR SHLDR >/=3V AP/KALINA AP/OTHR RT, XR HUMERUS 2V AP/LAT RT HISTORY: PT STS HE FELL TODAY AFTER BLACKING OUT, RT SHOULDER \EandE\ HUMERUS PAIN Shoulder pain, traumatic . TECHNIQUE: XR SHLDR >/=3V AP/KALINA AP/OTHR RT, XR HUMERUS 2V AP/LAT RT Laterality: RIGHT Number of different views (projections): SHOULDER-3, HUMERUS-2 M: XB_1 COMPARISON: None. RESULT: There is no acute fracture or subluxation. The glenohumeral and acromioclavicular joints are intact. The acromiohumeral interval is maintained. No lytic or blastic osseous lesion. The soft tissues are grossly unremarkable. IMPRESSION: UNREMARKABLE RADIOGRAPHS OF THE RIGHT HUMERUS AND RIGHT SHOULDER. Nuclear Medicine Technician: PSCB Transcribe Date/Time: Jun 22 2018 2:27P Dictated by : VARUN DYKES MD This examination was interpreted and the report reviewed and electronically signed by: VARUN DYKES MD on Jun 22 2018 2:28PM EST [id number] ED NOTE Observed: 06/22/2018 Status: COMPLETED Source: [place] 2:22 PM [facility] OTHER CAMPUS REPOSITORY HNO ID: [id number] Author: Madhuri Ochoa) KHADIJAH Lamar Service: Nursing Author Type: Registered Nurse Type: ED Notes Filed: 06/22/2018 2:22 PM Note Text: Returns to room. Remains in stable condition ED NOTE Observed: 06/22/2018 Status: COMPLETED Source: [place] 2:11 PM CLINIC OTHER CAMPUS REPOSITORY HNO ID: [id number] Author: Madhuri ReyesRn) KHADIJAH Lamar Service: Nursing Author Type: Registered Nurse Type: ED Notes Filed: 06/22/2018 2:17 PM Note Text: Patient transported to radiology department ED NOTE Observed: 06/22/2018 Status: COMPLETED Source: [place] 1:21 PM [facility] REPOSITORY HNO ID: [id number] Author: Madhuri Ochoa) KHADIJAH Lamar Service: Nursing Author Type: Registered Nurse Type: ED Notes Filed: 06/22/2018 1:22 PM Note Text: Patient presents with right arm pain after sustaining fall. Patient fell while at work today blacked out and fell onto right arm ED NOTE Observed: 06/22/2018 Status: COMPLETED Source: [place] 1:15 PM [facility] REPOSITORY HNO ID: [id number] Author: Khloe ReyesRnRowan Granados RN Service: (none) Author Type: Registered Nurse Type: ED Notes Filed: 06/22/2018 1:15 PM Note Text: Bed: ED-14 Expected date: Expected time: Means of arrival: Comments: LST MEDCO-14 Observed: 06/22/2018 Status: UNK Source: [place] 12:52 PM HOSPITALS REPOSITORY MEDCO-14 MEDCO-14 Physician's Report of Work Ability [facility]-[id number] Injured Worker: PHI COURTNEY Date of injury: 06/22/2018 Date of this appointment/examination: 06/22/2018 1. MEDCO-14 submission (select one of the options below.) I have never completed a MEDCO-14. Proceed to section 2. 2. Employment/Occupation (Complete this section and proceed to section 3.) Updates: No, I have not reviewed the description of the injured worker's job held on the date of the injury (former position of employment). 3A. Work Status/Injured worker's capabilities. Updates: Does the injured worker have any physical or health restrictions related to allowed conditions in the claim? Yes 3B. Can the injured worker return to full duties of his/her job held on the date of injury (former position of employment)? No. The injured worker could not do the job held on the date of the injury for this period of restricted duty. Date: Proceed to section 3C 3C. Please indicate which of the activities listed below the injured worker can perform (even if the response to 3B is No.) The injured worker is not released to the former position of employment but may return to available and appropriate work with restrictions, the possible return to work date: pending ER evaluation. If the injured worker is taking prescribed medications for the allowed conditions in this claim, can the injured worker safely: Please indicate the following: N=Never, O=Occasionally, F=Frequently, C=Continuously In an eight-hour workday, how many total hours can the injured worker: Does the injured worker have any functional restrictions based only on allowed psychological conditions? Note: If Yes is indicated please reference the MEDOH-16 as needed. Additionally, please provide any additional information addressing the injured worker's capabilities and/or job accommodations which may not be addressed above. Syncopal episode that preceded reported fall. To ER to evaluate syncope. Arm complaint not evaluated in urgent care. 4A. Disability information (If 3B above is No or dates updated - all 4A funes, including site/location if applicable must be completed) Complete the chart below and furnish the narrative description of the diagnosis(es), site/location, if applicable, and the ICD code(s) for the condition(s) being treated due to the work-related injury/disease. Please indicate if the condition is preventing the musa montanez worker from returning to job duties he/she held on the date of the injury. 5. Clinical findings: You can reference offices notes in lieu of writing clinical findings below. Provide your clinical and objective findings supporting your medical opinion outlined on this form. List barriers to return to work and reason, for the injured worker's delay in recovery. 6. Maximum medical improvement (MMI): MMI is a treatment plateau (static or well-stabilized) at which no fundamental functional or physiological change can be expected within reasonable medical probability, in spite of continuing medical or rehabilitative procedures. Has the work-related injury(s) or occupational disease reached MMI based on the definition above? No, the proposed treatment plan, including estimated duration of each treatment. N/A. *Note: An injured worker may need supportive treatment to maintain his or her level of function after reaching MMI. Thus, periodic medical treatment may still be requested and provided. 7. Vocational rehabilitation: Vocational rehabilitation is an individualized and voluntary program for an eligible injured worker who needs assistance in safely returning to work or in retaining employment.This program can be tailor ed around an injured worker's restrictions and may provide job seeking skills or necessary retraining. Is the injured worker a candidate for vocational rehabilitation services focusing on return to work ? If no, please explain why and provide your recommendations to help the injured worker return to employment. N/A 8. Treating physician signature - mandatory I certify the information on this form is correct to the best of my knowledge. I am aware that any person who knowingly makes a false statement, misrepresentation, concealment of fact or any other act o f fraud to obtain payment as provided by [facility], or who knowingly accepts payment to which that person is not entitled, is subject to felony criminal prosecution and may be punished, under appropriate jude inal provisions. by a fine or imprisonment or both. Treating physician's name (please print legibly): Pantera Smith MD MPH. [facility] provider ([place]) number: [phone] Complete Address, Telephone, Fax number and Date: [address] [place] [address], [address] [place] [address] fax [phone] Treating physician's signature: Pantera Smith MD MPH Signatures Electronically signed by : Yudith Smith MD; Jun 22 2018 12:44PM EST (Author) Electronically signed by : Yudith Smith MD; Jun 22 2018 12:52PM EST (Author) OFFICE VISIT [facility] Observed: 06/22/2018 Status: UNK Source: [place] 12:52 PM HOSPITALS REPOSITORY *Chief Complaint Shoulder Pain Date of Injury: 06/22/2018. History of Present Illness Patient states that 1 hour prior to arrival here he fell at home injuring his right upper arm. He does admit to a brief syncopal episode as the cause for the fall. Denies tripping over anything. Denies any other injuries. Denies having any chest pain or shortness of breath before or after the fall. Review of Systems Chart Histories Review: Past Medical History reviewed. Constitutional, cardiovascular, respiratory, neurologic and musculoskeletal reviews of systems as per history of present illness. All other system reviews currently negative. *Allergies No Known Drug Allergies *Vitals Vital Signs Recorded: [id number] 12:13PM Temperature: 97.8 F Heart Rate: 91 Respiration: 18 Systolic: 118 Diastolic: 79 Height: 6 ft 2 in Weight: 220 lb BMI Calculated: 28.25 BSA Calculated: 2.26 O2 Saturation: 99 Pain Scale: 10 Physical Exam Alert, ambulatory, no gross focal neurologic deficit. Uses his right arm without obvious difficulty. EKG shows a sinus rhythm with sinus arrhythmia, no ectopy or acute ischemic changes. We have contacted the employer to arrange transport to the emergency department for further evaluation and treatment. Patient arrived to urgent care via '[employer]'. Due to delay in reaching someone at the employer, decision was made to send him to ER via EMS. *Diagnosis/Problems Syncope, unspecified syncope type (780.2) (R55) *Orders IO EKG Electrocardiogram- 12 Lead; Status:Complete - Retrospective Authorization; Done: [id number] IO EKG Electrocardiogram- 12 Lead; Status:Active - Perform Order; Requested for:[id number]; *Patient Discussion/Summary Directly to ER via EMS. MEDCO-14 MEDCO-14 Physician's Report of Work Ability [facility]-3914 Injured Worker: PHI COURTNEY Date of injury: 06/22/2018 Date of this appointment/examination: 06/22/2018 1. MEDCO-14 submission (select one of the options below.) I have never completed a MEDCO-14. Proceed to section 2. 2. Employment/Occupation (Complete this section and proceed to section 3.) Updates: No, I have not reviewed the description of the injured worker's job held on the date of the injury (former position of employment). 3A. Work Status/Injured worker's capabilities. Updates: Does the injured worker have any physical or health restrictions related to allowed conditions in the claim? Yes 3B. Can the injured worker return to full duties of his/her job held on the date of injury (former position of employment)? No. The injured worker could not do the job held on the date of the injury for this period of restricted duty. Date: Proceed to section 3C 3C. Please indicate which of the activities listed below the injured worker can perform (even if the response to 3B is No.) The injured worker is not released to the former position of employment but may return to available and appropriate work with restrictions, the possible return to work date: pending ER evaluation. If the injured worker is taking prescribed medications for the allowed conditions in this claim, can the injured worker safely: Please indicate the following: N=Never, O=Occasionally, F=Frequently, C=Continuously In an eight-hour workday, how many total hours can the injured worker: Does the injured worker have any functional restrictions based only on allowed psychological conditions? Note: If Yes is indicated please reference the MEDCO-16 as needed. Additionally, please provide any additional information addressing the injured worker's capabilities and/or job accommodations which may not be addressed above. Syncopal episode that preceded reported fall. To ER to evaluate syncope. Arm complaint not evaluated in urgent care. 4A. Disability information (If 3B above is No or dates updated - all 4A funes, including site/location if applicable must be completed) Complete the chart below and furnish the narrative description of the diagnosis(es), site/location, if applicable, and the ICD code(s) for the condition(s) being treated due to the work-related injury/disease. Please indicate if the condition is preventing the musa montanez worker from returning to job duties he/she held on the date of the injury. 5. Clinical findings: You can reference offices notes in lieu of writing clinical findings below. Provide your clinical and objective findings supporting your medical opinion outlined on this form. List barriers to return to work and reason, for the injured worker's delay in recovery. 6. Maximum medical improvement (MMI): MMI is a treatment plateau (static or well-stabilized) at which no fundamental functional or physiological change can be expected within reasonable medical probability, in spite of continuing medical or rehabilitative procedures. Has the work-related injury(s) or occupational disease reached MMI based on the definition above? No, the proposed treatment plan, including estimated duration of each treatment. N/A. *Note: An injured worker may need supportive treatment to maintain his or her level of function after reaching MMI. Thus, periodic medical treatment may still be requested and provided. 7. Vocational rehabilitation: Vocational rehabilitation is an individualized and voluntary program for an eligible injured worker who needs assistance in safely returning to work or in retaining employment.This program can be tailor ed around an injured worker's restrictions and may provide job seeking skills or necessary retraining. Is the injured worker a candidate for vocational rehabilitation services focusing on return to work ? If no, please explain why and provide your recommendations to help the injured worker return to employment. N/A 8. Treating physician signature - mandatory I certify the information on this form is correct to the best of my knowledge. I am aware that any person who knowingly makes a false statement, misrepresentation, concealment of fact or any other act o f fraud to obtain payment as provided by [facility], or who knowingly accepts payment to which that person is not entitled, is subject to felony criminal prosecution and may be punished, under appropriate jude inal provisions. by a fine or imprisonment or both. Treating physician's name (please print legibly): Pantera Smith MD MPH. [facility] provider ([place]) number: [phone] Complete Address, Telephone, Fax number and Date: [address], [address] [facility] [address] fax [phone] Treating physician's signature: Pantera Smith MD MPH Signatures Electronically signed by : Yudith Smith MD; Jun 22 2018 12:44PM EST (Author) Electronically signed by : Yudith Smith MD; Jun 22 2018 12:52PM EST (Author) VENOUS DUPLEX LOWER Observed: 01/16/2018 Status: F Source: ADDIS EXTREMITY 3:24 PM [facility] RE[facility] Cardiovascular Services [address] [place] [address] Venous Duplex US - García Extrem 01/16/18 1343 MR#: [id number] Acct: [id number] Name: PHI COURTNEY Rep #: [id number] : 1975 42 From: Duran Aguirre MD Attending Dr: Jasmine Manning NP Status: REG CLI Ordering Dr: Jasmine Manning ANTIQUE COLLECTOR-C Date: 01/16/18 Location: [facility] Sex: M C Admitted: Reason For Study: LEG SWELLING RIGHT LEFT CFV is compressible, spontaneous, phasic, CFV is compressible, spontaneous, phasic, competent and demonstrates normal competent, and demonstrates normal augmentation. augmentation. FV is compressible, spontaneous, phasic, FV is compressible, spontaneous, phasic, competent and demonstrates normal competent and demonstrates normal augmentation. augmentation. POP V is compressible, spontaneous, phasic, POP V is compressible, spontaneous, phasic, competent and demonstrates normal competent and demonstrates normal augmentation. augmentation. T/P Trunk is compressible. T/P Trunk is compressible. PTV is compressible. PTV is compressible. RT PerV is compressible. LT PerV is compressible. SFJ is INCOMPETENT with reflux greater SFJ is INCOMPETENT with reflux greater than .5 sec than .5 sec GSV is INCOMPETENT in prox thigh with reflux GSV is INCOMPETENT in prox thigh with reflux greater than .5 sec and diameter of .25 greater than .5 sec and diameter of .53 x .25 cm x .65 cm. GSV is partially compressible with GSV becomes diminutive from mid thigh to bright intraluminal echoes consistant with ankle unable to assess chronic clot. GSV becomes diminutive mid SSV is INCOMPETENT with reflux greater thigh to ankle. Unable to assess. than .5 sec and diameter of .25 x .26 cm. SSV is competent. Procedure Exam performed in department. Interpretation Summary Deep veins of the lower extremities are bilaterally patent and compressible segmentally. There is no evidence of deep vein thrombosis on either side. Valvular competence appears intact within the proximal deep venous systems bilaterally. Sapheno-femoral junctions are bilaterally incompetent . The greater saphenous veins are incompetent in the proximal thighs bilaterally. The right greater saphenous vein is diminutive from the right mid-thigh to the ankle, and too small to assess competency. The left greater saphenous vein is diminutive from the left mid-thigh to the ankle, is too small to assess competency, and demonstrates chronic venous changes. The right small saphenous vein is patent and incompetent. The left small saphenous vein is patent and competent. Ordering Physician: JASMINE MANNING Referring Physician: Jasmine Manning Performed By: Marcela Rdz RVT 01/16/18 1523 Date Duran Aguirre MD CC: TAIWO Manning; No Primary Care Physician Date Dictated: 01/16/18 1343 Date Transcribed: 01/16/18 1523 Nuclear Medicine Technician: Signed HIP 2-3 VIEWS WITH Observed: 01/16/2018 Status: F Source: ADDIS PELVIS 2:37 PM [facility] Imaging Services [address] [place] [address] Hip 2-3 Views with Pelvis MR#: [id number] Acct: [id number] Name: PHI COURTNEY Rep #: [id number] : 1975 M 42 From: Daniel Abarca MD PCP: Care Physician, No Primary Status: REG CLI Study: Hip 2-3 Views with Pelvis Date of Exam: 01/16/18 Exam# [id number] Ordering Dr: Jasmine Manning ANTIQUE COLLECTOR-C STUDY: X-RAY - PELVIS AND LEFT HIP REASON FOR EXAM: Male, 42 years old. Left hip pain TECHNIQUE: Radiological exam, hip, unilateral, with pelvis when performed; 2 or 3 views. COMPARISON: None. FINDINGS: There is a non-specific bowel gas pattern. Normal visualized soft tissue structures. Normal bilateral iliac wings, sacroiliac joints and visualized sacrum. Normal bilateral superior and inferior pubic rami. Normal pubic symphysis. Normal bilateral ischial tuberosities. Normal visualized femoral head. Normal acetabulum. Normal hip joint. RAD/Hip 2-3 Views with Pelvis IMPRESSION: Normal x-ray examination of the pelvis and hip. Electronically Signed: Daniel Abarca MD at 15:24 EDT , Service support , CC: TAIWO Manning; No Primary Care Physician Nuclear Medicine Technician: Signed ALLERGIES ALLERGIES DATE TYPE / CODE NAME / CODE REACTION SEVERITY SOURCE 11/28/2018 Drug No Known Unknown [place] Allergy/416 Allergies/[id number] [facility] 357279([place] [address](RXNORM) [facility] ED CT) Repository 06/23/2016 DRUG SITAGLIPTIN OTHER: SEE C [facility] INGREDI/419 Other [place] [address]([facility] Repository ED CT) ENCOUNTERS ENCOUNTERS ADMIT/DISCHARGE ACCOUNT ADMITTING ENCOUNTER LOCATION SOURCE NUMBER CLASS 11/28/2018/11/28/19 [id number] Ambulatory BMSBuilding:B [place] [facility] Repository 11/22/2018 [id number] Ambulatory BMSBuilding:B [place] MS.[facility] Repository 10/19/2018 [id number] Ambulatory [facility] ing:[facility] Repository 06/22/2018/06/22/20 [id number] Emergency [address] Other [place] Repository 01/16/2018 [id number] Ambulatory [facility] ing:[facility] Repository PAYERS PAYERS ENCOUNTER GUARANTOR PAYER SUBSCRIBER SOURCE 11/28/2018 PHI [place] Primary PHI E [place] [id number] OLD Insurance:MEDICAL FARRENDOB: [id number] [address]Czp: Number: Repository [id number] (HP) Date:[id number] [address] [address]BN: 11/28/2018 Secondary NOT GIVENUNK [place] Insurance:SELF PAY [facility] Number: Effective Repository Date:2018-11-28 11/22/2018 PHI Newton Primary PHI E [place] [id number] OLD Insurance:MEDICAL FARRENDOB: [facility] [id number] [facility] Health [facility] [address]Sth: Number: Repository [id number] (HP) Date:[id number] [address] [address]WV: 11/22/2018 Secondary NOT GIVENUNK [place] Insurance:SELF PAY [facility] Number: Effective Repository Date:2018-11-22 10/19/2018 PHI Newton Primary PHI Newton [place] [id number] OLD Insurance:MEDICAL FARRENDOB: [facility] [id number] Indian Health Center [address]Heb: Number: Repository [id number] (HP) Date:[id number] [address] [address]ZI: 10/19/2018 Secondary NOT GIVENUNK [place] Insurance:SELF PAY [facility] Number: Effective Repository Date:2018-10-19 01/16/2018 PHI E Primary HPI Newton [place] [id number] OLD Insurance:MEDICAL FARRENDOB: [facility] [id number] Indian Health Center [address]Sat: Number: Repository [id number] (HP) Date:[id number] [address] [address]TG: 01/16/2018 Secondary NOT GIVENUNK [place] Insurance:SELF PAY [facility] Number: Effective Repository Date:2018-01-09
== END ==
PROVIDERS: Referring Provider Nurse Practitioner; Visit Provider Nurse Practitioner
DX: E78.00 Pure hypercholesterolemia, unspecified (principal)
CPT/HCPCS: 80053; 80061; 85025

== ENCOUNTER → 2018-12-14 14:31 | Outpatient (CLI) | payer OTHER, SELFPAY ==
[2018-11-28 15:22] VITALS: BMI 30.2
--- NOTE | 2018-12-14 14:33 | ECHOD_ITS ---
Reason For Study: PULMONARY HYPERTENSION Procedure This was a 2D Doppler, Color Flow transthoracic echocardiogram. Exam performed in department. Left Ventricle Normal LV size. Left ventricular systolic function is normal. The estimated ejection fraction is 60 %. Stage 1 diastolic dysfunction. No regional wall motion abnormalities noted. Right Ventricle Normal RV size. Normal systolic function. Atria Normal left atrium. Normal right atrium. Mitral Valve Normal mitral valve. Tricuspid Valve Normal tricuspid valve. Unable to estimate RV systolic pressure due to inadequate jet, pulmonary artery pressure probably normal. Aortic Valve Normal aortic valve. Trisinus/trileaflet aortic valve. Pulmonic Valve Normal pulmonic valve. Great Vessels Normal aortic root. The pulmonary artery is normal size. Normal inferior vena cava. Pericardium/Pleural No pericardial effusion. MMode/2D Measurements & Calculations LVIDd: 4.5 cm IVSd: 1.0 cm Ao root diam: 3.5 cm LVIDs: 3.2 cm LVPWd: 1.0 cm RVDd: 3.7 cm FS: 28.7 % LAV(MOD-bp): 30.7 ml LVAd ap4: 32.2 cm2 SV(MOD-sp4): 63.9 ml LAV(MOD-bp) Indexed: 13.2 ml/m2 EDV(MOD-sp4): 107.6 ml LAV(MOD-sp2): 42.1 ml EDV(sp4-el): 113.5 ml LAV(MOD-sp4): 23.8 ml LVAs ap4: 18.0 cm2 ESV(MOD-sp4): 43.7 ml ESV(sp4-el): 43.4 ml EF(MOD-sp4): 59.4 % EF(sp4-el): 61.7 % SV(sp4-el): 70.1 ml LA A4 area: 11.5 cm2 LA dimension(2D): 3.5 cm RA A4 area: 12.7 cm2 Time Measurements MV dec time: 0.18 sec Doppler Measurements & Calculations MV E max harris: 94.8 cm/sec Lat Peak E' Harris: 9.5 cm/sec Med Peak E' Harris: 6.6 cm/sec MV A max harris: 106.3 cm/sec E/E' lat: 10.0 E/E' med: 14.4 MV E/A: 0.89 Ao V2 max: 138.4 cm/sec LV V1 max: 95.9 cm/sec PA V2 max: 123.0 cm/sec Ao max P.7 mmHg LV V1 max P.7 mmHg Interpretation Summary Normal LV size. Left ventricular systolic function is normal. The estimated ejection fraction is 60 %. Normal mitral valve. Unable to estimate RV systolic pressure due to inadequate jet, pulmonary artery pressure probably normal. Stage 1 diastolic dysfunction. Structurally normal valves. Ordering Physician: Quang Mariscal Referring Physician: JASMINE MANNING Performed By: Chiquita Craig RDCS
== END ==
PROVIDERS: Family Provider Nurse Practitioner; PCP Nurse Practitioner; Referring Provider Internal Medicine Cardiovascular Disease; Visit Provider Internal Medicine Cardiovascular Disease
DX: I10 Essential (primary) hypertension (principal); R60.0 Localized edema
CPT/HCPCS: 93306

== ENCOUNTER → 2019-02-06 20:41 | Outpatient (CLI) | payer OTHER, SELFPAY ==
[2019-02-06 16:49] VITALS: BMI 30.5
[2019-02-06 21:01] LABS: Absolute Lymphocyte Count 0.94 X10^3/ul (0.83-4.51); Absolute Neutrophil Count 3.4 X10^3/uL (2.0-7.7); Basophil# 0.02 X10^3/uL; Basophil% 0.4 % (0-1); Eosinophil# 0.51 X10^3/uL; Eosinophils% 9.6 % (0-5); Hematocrit 36.9 % (40-54); Hemoglobin 12.5 g/dl (13.0-16.5); Lymphocyte # 0.94 X10^3/ul (4.0); Lymphocyte % 17.7 % (19-41); Mean Corp Hgb Conc 33.9 g/gl (32-36); Mean Corpuscular Hgb 27.4 pg (27.0-32.0); Mean Corpuscular Volume 80.7 fL (80-94); Mean Platelet Vol. 11.3 fl (6.2-12.0); Monocyte# 0.43 X10^3/uL; Monocyte% 8.1 % (0-10); Neutrophil % 64.2 % (47-70); Platelet Count 129 K/mm3 (150-450); RBC Distribution Width CV 14.2 % (11.6-14.6); RBC Distribution Width SD 41.7 fl (35.1-43.9); Red Blood Count 4.57 M/mm3 (4.6-6.2); White Blood Count 5.3 K/mm3 (4.4-11.0)
[2019-02-06 21:02] LABS: POSITIVE COUNT NO; POSITIVE DIFFERENTIAL NO; POSITIVE MORPHOLOGY NO
[2019-02-06 21:15] LABS: ALB/GLOB Ratio 1.2 RATIO (0.9-2.4); AST(SGOT) 27 U/L (15-37); Alanine Aminotransfer ALT/SGPT 33 U/L (16-61); Albumin, Serum 3.7 g/dL (3.2-5.0); Alkaline Phosphatase 72 U/L (45-117); Anion Gap 6 (5-15); BUN 9 mg/dL (7-18); BUN/Creat Ratio 8.8 RATIO (10-20); Chloride 99 mmol/L (98-107); Cholesterol 111 mg/dL (200); Creatinine, Serum 1.02 mg/dL (0.70-1.30); EST Glomerular Filtration Rate 85 mL/min (>60); Est Glom Filt Rate - Afr Amer 102 mL/min (>60); Globulin 3.2 g/dL (2.2-4.2); Glucose 169 mg/dL (74-106); High Density Lipoprotein 58 mg/dL; Potassium 3.7 mmol/L (3.5-5.1); Protein, Total 6.9 g/dL (6.4-8.2); Sodium Level 133 mmol/L (136-145); Triglycerides 83 mg/dL; Very Low Density Lipoprotein 17 mg/dL (5-40)
== END ==
PROVIDERS: Family Provider Nurse Practitioner; PCP Nurse Practitioner; Referring Provider Nurse Practitioner; Visit Provider Nurse Practitioner
DX: I10 Essential (primary) hypertension (principal); E78.5 Hyperlipidemia, unspecified
CPT/HCPCS: 80053; 80061; 85025

== ENCOUNTER → 2019-02-20 | Outpatient (CLI) | payer OTHER, SELFPAY ==
[2019-02-21 00:13] VITALS: BMI 30.5
[2019-02-21 00:39] LABS: Absolute Lymphocyte Count 1.25 X10^3/ul (0.83-4.51); Absolute Neutrophil Count 3.6 X10^3/uL (2.0-7.7); Basophil# 0.05 X10^3/uL; Basophil% 0.8 % (0-1); Eosinophil# 0.73 X10^3/uL; Eosinophils% 12.1 % (0-5); Hematocrit 37.7 % (40-54); Hemoglobin 12.9 g/dl (13.0-16.5); Lymphocyte # 1.25 X10^3/ul (4.0); Lymphocyte % 20.8 % (19-41); Mean Corp Hgb Conc 34.2 g/gl (32-36); Mean Corpuscular Hgb 27.6 pg (27.0-32.0); Mean Corpuscular Volume 80.6 fL (80-94); Mean Platelet Vol. 12.1 fl (6.2-12.0); Monocyte# 0.42 X10^3/uL; Neutrophil # 3.55 X10^3/uL (2.7-7.7); Neutrophil % 59.1 % (47-70); Platelet Count 176 K/mm3 (150-450); RBC Distribution Width SD 40.1 fl (35.1-43.9); Red Blood Count 4.68 M/mm3 (4.6-6.2)
[2019-02-21 00:50] LABS: POSITIVE COUNT NO; POSITIVE DIFFERENTIAL NO; POSITIVE MORPHOLOGY NO
[2019-02-21 03:23] LABS: CRP < 2.90 mg/L (0.0-3.0)
== END | disposition home or self-care (01) ==
LOC: OLS.AHF 02-21 00:14 → LABSPEC 02-22 08:12
PROVIDERS: Family Provider Nurse Practitioner; PCP Nurse Practitioner; Visit Provider Nurse Practitioner
DX: D64.9 Anemia, unspecified (principal); M25.461 Effusion, right knee; M25.561 Pain in right knee
CPT/HCPCS: 85025; 86140

== ENCOUNTER → 2019-12-05 | Outpatient (CLI) | payer OTHER, SELFPAY ==
[2019-12-05 17:02] VITALS: BMI 32.3
[2019-12-05 21:18] LABS: Absolute Lymphocyte Count 0.99 X10^3/uL (0.83-4.51); Absolute Neutrophil Count 2.4 X10^3/uL (2.0-7.7); Basophil# 0.03 X10^3/uL; Basophil% 0.7 % (0-1); Eosinophil# 0.28 X10^3/uL; Eosinophils% 6.6 % (0-5); Hemoglobin 13.8 g/dL (13.0-16.5); Lymphocyte # 0.99 X10^3/ul (4.0); Lymphocyte % 23.3 % (19-41); Mean Corp Hgb Conc 32.9 g/dL (32-36); Mean Corpuscular Hgb 27.3 pg (27.0-32.0); Mean Corpuscular Volume 83.2 fL (80-94); Monocyte# 0.56 X10^3/uL; Monocyte% 13.2 % (0-10); NRBC Flagged by Analyzer 0 % (0-5); Neutrophil # 2.37 X10^3/uL (2.7-7.7); Platelet Count 150 K/mm3 (150-450); RBC Distribution Width CV 13.4 % (11.6-14.6); RBC Distribution Width SD 40.8 fl (35.1-43.9); Red Blood Count 5.05 M/mm3 (4.6-6.2); White Blood Count 4.2 K/mm3 (4.4-11.0)
[2019-12-05 21:39] LABS: ALB/GLOB Ratio 1.1 RATIO (0.9-2.4); AST(SGOT) 26 U/L (15-37); Alanine Aminotransfer ALT/SGPT 37 U/L (16-61); Albumin, Serum 3.8 g/dL (3.2-5.0); Alkaline Phosphatase 79 U/L (45-117); Anion Gap 5 (5-15); BUN 13 mg/dL (7-18); Calcium,Total 9.4 mg/dL (8.5-10.1); Chloride 106 mmol/L (98-107); Cholesterol 118 mg/dL (200); Creatinine, Serum 1.08 mg/dL (0.70-1.30); EST Glomerular Filtration Rate 79 mL/min (>60); Est Glom Filt Rate - Afr Amer 95 mL/min (>60); Globulin 3.5 g/dL (2.2-4.2); Glucose 133 mg/dL (74-106); High Density Lipoprotein 53 mg/dL; Potassium 3.7 mmol/L (3.5-5.1); Protein, Total 7.3 g/dL (6.4-8.2); Sodium Level 142 mmol/L (136-145); Triglycerides 129 mg/dL; Very Low Density Lipoprotein 26 mg/dL (5-40)
== END | disposition home or self-care (01) ==
PROVIDERS: PCP Nurse Practitioner; Referring Provider Nurse Practitioner; Visit Provider Nurse Practitioner
DX: E78.5 Hyperlipidemia, unspecified (principal); E11.65 Type 2 diabetes mellitus with hyperglycemia
CPT/HCPCS: 80053; 80061; 85025

== ENCOUNTER → 2020-08-13 | Outpatient (CLI) | payer OTHER, SELFPAY ==
[2019-12-05 17:02] VITALS: BMI 32.3
--- NOTE | 2020-08-13 10:32 | VDLE_ITS ---
Reason For Study: ch and swelling, varicose veins Procedure LEFT This is a venous duplex using B-mode, color CFV is compressible, spontaneous, phasic, flow and spectral Doppler. competent, and demonstrates normal Exam performed in department. augmentation. The exam was abbreviated due to the COVID 19 FV is compressible, spontaneous, phasic, protocol. competent and demonstrates normal The exam was diagnostic. augmentation. POP V is compressible, spontaneous, phasic, competent and demonstrates normal augmentation. T/P Trunk is compressible. PTV is compressible. LT PerV is compressible. SFJ is INCOMPETENT and measures .44 cm. GSV proximal thigh measures .58 x .69 cm. GSV at knee measures .47 x .43 cm. GSV INCOMPETENT throughout for greater than 0.5 seconds. SSV proximal calf is INCOMPETENT for greater than 0.5 seconds and measures .34 x .37 cm. GSV is partially compressible with bright intraluminal echoes consistent with chronic SVT. GSV is small and retracted in some areas. GSV is tortuous. Interpretation Summary No acute DVt or SVT. There is reflux in GSV and LSV of left leg with areas chronic changes noted. Ordering Physician: Steven Jules Performed By: Baljinder Azevedo RVT
== END | disposition home or self-care (01) ==
LOC: CVS 10:31
PROVIDERS: PCP Nurse Practitioner; Referring Provider Surgery Vascular Surgery; Visit Provider Surgery Vascular Surgery
DX: M79.89 Other specified soft tissue disorders (principal); I83.892 Varicose veins of left lower extremity with other complications; M79.609 Pain in unspecified limb
CPT/HCPCS: 93971

== ENCOUNTER → 2020-11-02 09:45 | Outpatient (CLI) | payer OTHER, SELFPAY ==
[2019-12-05 17:02] VITALS: BMI 32.3
--- NOTE | 2020-11-02 09:48 | VDLE_ITS ---
Reason For Study: Swelling, Pain, s/p ablation RIGHT LEFT CFV is compressible, spontaneous, phasic, CFV is compressible, spontaneous, phasic, competent and demonstrates normal competent, and demonstrates normal augmentation. augmentation. Procedure FV is compressible, spontaneous, phasic, Exam performed in department. competent and demonstrates normal A preliminary report was called and/or faxed augmentation. to Dr. Jorge A Burdick. POP V is compressible, spontaneous, phasic, competent and demonstrates normal augmentation. T/P Trunk is compressible. PTV is compressible. LT PerV is compressible. Lt GastrocV is dilated and non compressible consistent with acute DVT Lt GSV and Lt SSV are occluded s/p ablation. Interpretation Summary Left gastroc DVT. GSV, LSV and varicose veins occluded. Ordering Physician: Steven Jules Referring Physician: Linda Curry Performed By: Milana Cruz, SEFERINO, RVT
== END ==
PROVIDERS: PCP Nurse Practitioner; Referring Provider Surgery Vascular Surgery; Visit Provider Surgery Vascular Surgery
DX: M79.89 Other specified soft tissue disorders (principal); I83.893 Varicose veins of bilateral lower extremities with other complications; M79.609 Pain in unspecified limb
CPT/HCPCS: 93971

== ENCOUNTER → 2020-11-10 08:32 | Outpatient (CLI) | payer OTHER, SELFPAY ==
[2019-12-05 17:02] VITALS: BMI 32.3
--- NOTE | 2020-11-10 08:33 | VDLE_ITS ---
Reason For Study: swelling, pain Procedure LEFT This is a venous duplex using B-mode, color CFV is compressible, spontaneous, phasic, flow and spectral Doppler. competent, and demonstrates normal Exam performed in department. augmentation. The exam was abbreviated due to the COVID 19 FV is compressible, spontaneous, phasic, protocol. competent and demonstrates normal The exam was diagnostic. augmentation. A preliminary report was called and/or faxed POP V is compressible, spontaneous, phasic, to Dr. Jules. competent and demonstrates normal augmentation. T/P Trunk is compressible. PTV is compressible. LT PerV is compressible. Gastroc V and varicose veins are dilated and noncompressible. GSV and SSV are occluded S/P ablation. Interpretation Summary Left gastroc DVT unchanged. Ordering Physician: Steven Jules Performed By: Baljinder Azevedo RVT
== END ==
PROVIDERS: PCP Nurse Practitioner; Referring Provider Surgery Vascular Surgery; Visit Provider Surgery Vascular Surgery
DX: M79.89 Other specified soft tissue disorders (principal); I83.891 Varicose veins of right lower extremity with other complications; I83.892 Varicose veins of left lower extremity with other complications; M79.606 Pain in leg, unspecified
CPT/HCPCS: 93971

== ENCOUNTER → 2021-01-19 09:44 | Outpatient (CLI) | payer OTHER, SELFPAY ==
[2019-12-05 17:02] VITALS: BMI 32.3
--- NOTE | 2021-01-19 09:50 | VDLE_ITS ---
Reason For Study: pain and swelling Procedure LEFT This is a venous duplex using B-mode, color CFV is compressible, spontaneous, phasic, flow and spectral Doppler. competent, and demonstrates normal Exam performed in department. augmentation. The exam was abbreviated due to the COVID 19 FV is compressible, spontaneous, phasic, protocol. competent and demonstrates normal The exam was diagnostic. augmentation. POP V is compressible, spontaneous, phasic, competent and demonstrates normal augmentation. T/P Trunk is compressible. PTV is compressible. LT PerV is compressible. Gastroc V are now compressible. Varicose veins are dilated and noncompressible. GSV and SSV are occluded S/P ablation. Interpretation Summary Left leg no DVT. The gsv and lsv are occluded and varicose veins also appear occluded. Ordering Physician: Steven Jules Performed By: Baljinder Azevedo RVT
== END ==
PROVIDERS: PCP Nurse Practitioner; Referring Provider Surgery Vascular Surgery; Visit Provider Surgery Vascular Surgery
DX: M79.89 Other specified soft tissue disorders (principal); M79.609 Pain in unspecified limb; M79.606 Pain in leg, unspecified; I83.891 Varicose veins of right lower extremity with other complications; I83.892 Varicose veins of left lower extremity with other complications
CPT/HCPCS: 93971

== ENCOUNTER → 2023-01-26 | Outpatient (CLI) | payer OTHER, SELFPAY ==
--- NOTE | 2023-01-26 09:39 | VDLE_ITS ---
Reason For Study: Pain Procedure LEFT This is a venous duplex using B-mode, color CFV is compressible, spontaneous, phasic, flow and spectral Doppler. competent, and demonstrates normal Exam performed in department. augmentation. Patient was scanned in reverse Trendelenburg FV is compressible, spontaneous, phasic, position during reflux assessment. competent and demonstrates normal augmentation. POP V is compressible, spontaneous, phasic, competent and demonstrates normal augmentation. T/P Trunk is compressible. PTV is compressible. LT PerV is compressible. SFJ is INCOMPETENT and measures 0.78 x 0.74 cm. ASV from junction is INCOMPETENT for greater than 0.5 seconds and measures 0.58 x 0.62 cm. ASV mid thigh is INCOMPETENT for greater than 0.5 seconds and measures 0.46 x 0.50 cm. Clusters of varicose veins in calf extend from ASV mid thigh. GSV prox thigh is partially compressible with bright intraluminal echoes. GSV mid thigh to ankle and SSV previous ablation. VL/Venous Duplex US, Unilateral Interpretation Summary Left no DVT. Left GSV and LSV previous ablation. Left ASV 6.2 and 5mm reflux. Ordering Physician: Steven Jules Referring Physician: Ramila Landa Performed By: Monet Mcdermott RVT
== END | disposition home or self-care (01) ==
LOC: CVS 09:35
PROVIDERS: PCP Nurse Practitioner Family; Referring Provider Surgery Vascular Surgery; Visit Provider Surgery Vascular Surgery
DX: M79.606 Pain in leg, unspecified (principal); M79.89 Other specified soft tissue disorders; I83.893 Varicose veins of bilateral lower extremities with other complications
CPT/HCPCS: 93971

== ENCOUNTER → 2023-06-12 | Outpatient (CLI) | payer OTHER, SELFPAY ==
--- NOTE | 2023-06-12 12:46 | VDLE_ITS ---
Reason For Study: Bilateral Varicose Veins RIGHT LEFT CFV is compressible, spontaneous, phasic, CFV is compressible, spontaneous, phasic, competent and demonstrates normal competent, and demonstrates normal augmentation. augmentation. FV is compressible, spontaneous, phasic, FV is compressible, spontaneous, phasic, competent and demonstrates normal competent and demonstrates normal augmentation. augmentation. POP V is compressible, spontaneous, phasic, POP V is compressible, phasic, and competent and demonstrates normal INCOMPETENT for greater than 1.0 second. augmentation. T/P Trunk is compressible. T/P Trunk is compressible. PTV is compressible. PTV is compressible. LT PerV is compressible. RT PerV is compressible. SFJ is INCOMPETENT and measures 0.69 cm. SFJ is INCOMPETENT and measures 0.40 cm. ASV proximal thigh is INCOMPETENT for greater GSV proximal thigh measures 0.26 x 0.30 cm. than 0.5 seconds and measures 0.61 x 0.66 cm. GSV above knee is INCOMPETENT for greater ASV mid thigh is INCOMPETENT for greater than than 0.5 seconds. 0.5 seconds and measures 0.37 x 0.44 cm. GSV at knee measures 0.21 x 0.24 cm. Clusters of varicose veins in calf extend GSV below knee is competent. from ASV mid thigh. SSV proximal calf is competent and measures GSV prox thigh is partially compressible with 0.22 x 0.25 cm. bright intraluminal echoes. Procedure GSV mid thigh to ankle and SSV to ankle both This is a venous duplex using B-mode, color appear previously ablated. flow and spectral Doppler. Exam performed in department. The exam was diagnostic. VL/Venous Duplex US - García Extrem Interpretation Summary No DVT.Left popliteal vein reflux. Right GSV above knee reflux 2.6mm. Left ASV 6.9, 6.6 and 4.4 reflux. Ordering Physician: Jules, Steven A Referring Physician: Ramila Landa Performed By: Alonso Sullivan RVT
== END | disposition home or self-care (01) ==
LOC: CVS 12:45
PROVIDERS: PCP Nurse Practitioner Family; Referring Provider Surgery Vascular Surgery; Visit Provider Surgery Vascular Surgery
DX: I83.893 Varicose veins of bilateral lower extremities with other complications (principal); M79.606 Pain in leg, unspecified
CPT/HCPCS: 93970

== ENCOUNTER → 2024-03-29 | Outpatient (CLI) | payer OTHER, SELFPAY ==
--- NOTE | 2024-03-29 09:19 | VDLE_ITS ---
Reason For Study: Bilateral leg swelling RIGHT LEFT CFV is compressible, spontaneous, phasic, CFV is compressible, spontaneous, phasic, competent and demonstrates normal competent, and demonstrates normal augmentation. augmentation. FV is compressible, spontaneous, phasic, FV is compressible, spontaneous, phasic, competent and demonstrates normal competent and demonstrates normal augmentation. augmentation. POP V is compressible, spontaneous, phasic, POP V is compressible, spontaneous, phasic, competent and demonstrates normal competent and demonstrates normal augmentation. augmentation. T/P Trunk is compressible. T/P Trunk is compressible. PTV is compressible. PTV is compressible. RT PerV is compressible. LT PerV is compressible. SFJ is competent and measures 0.25 x 0.40 cm. SFJ is INCOMPETENT and measures 0.63 x 0.67 GSV from junction to mid calf appears to be cm. previously ablated. ASV proximal thigh is INCOMPETENT for greater GSV distal calf is INCOMPETENT for greater than 0.5 seconds and measures 0.54 x 0.58 cm. than 0.5 seconds. GSV mid thigh to ankle and SSV throughout SSV proximal calf is competent and measures both appear previously ablated. 0.25 x 0.26 cm. GSV prox thigh is partially compressible with Procedure bright intraluminal echoes. This is a venous duplex using B-mode, color Clusters of varicose veins extend from ASV flow and spectral Doppler. prox thigh and GSV prox that extend into the Exam performed in department. calf. Patient was scanned in reverse Trendelenburg position during reflux assessment. VL/Venous Duplex US - García Extrem Interpretation Summary No DVT. Right gsv calf reflux. Left ASV 5.8 reflux into branches. LEft GSV and LSV occluded. Ordering Physician: Steven Jules Referring Physician: Ramila Landa Performed By: Monet Mcdermott RVT
== END | disposition home or self-care (01) ==
LOC: CVS 09:12
PROVIDERS: PCP Nurse Practitioner Family; Referring Provider Surgery Vascular Surgery; Visit Provider Surgery Vascular Surgery
DX: I83.893 Varicose veins of bilateral lower extremities with other complications (principal); M79.89 Other specified soft tissue disorders; M79.606 Pain in leg, unspecified
CPT/HCPCS: 93970

== ENCOUNTER → 2024-07-25 | Outpatient (CLI) | payer OTHER, SELFPAY ==
--- NOTE | 2024-07-25 12:11 | VDLE_ITS ---
Reason For Study: BLE Varicose Veins RIGHT LEFT CFV is compressible, spontaneous, phasic, CFV is compressible, spontaneous, phasic, competent and demonstrates normal competent, and demonstrates normal augmentation. augmentation. FV is compressible, spontaneous, phasic, FV is compressible, spontaneous, phasic, competent and demonstrates normal competent and demonstrates normal augmentation. augmentation. POP V is compressible, spontaneous, phasic, POP V is compressible, spontaneous, phasic, competent and demonstrates normal competent and demonstrates normal augmentation. augmentation. T/P Trunk is compressible. T/P Trunk is compressible. PTV is compressible. PTV is compressible. RT PerV is compressible. LT PerV is compressible. Unable to Visualize GSV from prox thigh to LT ASV / GSV appear to have been chemically mid calf. GSV mid/dist calf appear ablated. compressible. GSV appears NONCOMPRESSIBLE. Procedure ASV prox thigh appears partially Exam performed in department. compressible. This is a venous duplex using B-mode, color ASV measures 0.41 x 0.42cm and shows reflux flow and spectral Doppler. for > 0.5 seconds. The vessel appears to The exam was diagnostic. branch from varicose vein clusters at prox Patient was scanned in reverse Trendelenburg and mid calf as well as mid thigh. position during reflux assessment. Varicosities show reflux for > 0.5 sec. Perforating vein at proximal calf measures 0.38cm and shows reflux for > 0.5 sec. VL/Venous Duplex US - García Extrem Interpretation Summary No DVT. Left GSv ablated and ASV partially ablated with reflux noted. Ordering Physician: Steven Jules Referring Physician: Carmelina Landa Performed By: Alonso Sullivan RVT
== END | disposition home or self-care (01) ==
LOC: CVS 12:10
PROVIDERS: PCP Nurse Practitioner Family; Referring Provider Surgery Vascular Surgery; Visit Provider Surgery Vascular Surgery
DX: I83.893 Varicose veins of bilateral lower extremities with other complications (principal)
CPT/HCPCS: 93970

== ENCOUNTER → 2024-08-19 | Outpatient (CLI) | payer OTHER, SELFPAY ==
--- NOTE | 2024-08-19 12:34 | VDLE_ITS ---
Reason For Study: Bilateral varicose veins RIGHT LEFT CFV is compressible, spontaneous, phasic, CFV is compressible, spontaneous, phasic, competent and demonstrates normal competent, and demonstrates normal augmentation. augmentation. FV is compressible, spontaneous, phasic, FV is compressible, spontaneous, phasic, competent and demonstrates normal competent and demonstrates normal augmentation. augmentation. POP V is compressible, spontaneous, phasic, POP V is compressible, spontaneous, phasic, competent and demonstrates normal competent and demonstrates normal augmentation. augmentation. T/P Trunk is compressible. T/P Trunk is compressible. RT PerV is compressible. PTV is compressible. Acute deep vein thrombosis is noted in the LT PerV is compressible. PTV. It is dilated and NONCOMPRESSIBLE. LT ASV / GSV appear to have been chemically Unable to Visualize GSV s/p ablation from ablated. prox thigh to mid calf. GSV mid/dist calf GSV appears NONCOMPRESSIBLE. appear compressible SSV is noncompressible s/p ablation. Varicose veins in mid calf are Varicose veins in calf are noncmopressible noncompressible s/p ablation. s/p ablation. Procedure This is a venous duplex using B-mode, color flow and spectral Doppler. Exam performed in department. A preliminary report was called and/or faxed to [facility]. VL/Venous Duplex US - García Extrem Interpretation Summary Acute deep vein thrombosis is noted in the right posterior tibial vein. Bilater al successful ablation. Ordering Physician: Steven Jules Referring Physician: Ramila Landa Performed By: Monet Mcdermott RVT
== END | disposition home or self-care (01) ==
LOC: CVS 12:33
PROVIDERS: PCP Nurse Practitioner Family; Referring Provider Surgery Vascular Surgery; Visit Provider Surgery Vascular Surgery
DX: I83.892 Varicose veins of left lower extremity with other complications (principal)
CPT/HCPCS: 93970

== ENCOUNTER → 2024-09-13 | Outpatient (CLI) | payer OTHER, SELFPAY | END | disposition home or self-care (01) | LOC: CVS 08:03 | PROVIDERS: PCP Nurse Practitioner Family; Referring Provider Surgery Vascular Surgery; Visit Provider Surgery Vascular Surgery | DX: I82.491 Acute embolism and thrombosis of other specified deep vein of right lower extremity (principal); M79.609 Pain in unspecified limb; I83.893 Varicose veins of bilateral lower extremities with other complications | CPT/HCPCS: 93970 ==

== ENCOUNTER → 2024-09-27 | Outpatient (CLI) | payer OTHER, SELFPAY ==
--- NOTE | 2024-09-27 08:42 | VDLE_ITS ---
Reason For Study: F/U DVT BLE RIGHT LEFT CFV is compressible, spontaneous, phasic, CFV is compressible, spontaneous, phasic, competent and demonstrates normal competent, and demonstrates normal augmentation. augmentation. FV is compressible, spontaneous, phasic, FV is compressible, spontaneous, phasic, competent and demonstrates normal competent and demonstrates normal augmentation. augmentation. POP V is compressible, spontaneous, phasic, POP V is compressible, spontaneous, phasic, competent and demonstrates normal competent and demonstrates normal augmentation. augmentation. T/P Trunk is compressible. T/P Trunk is compressible. RT PerV is compressible. PTV is compressible. Rt PTV is Dilated and NON COMPRESSIBLE LT PerV is compressible. consistent with acute DVT Lt GastrocV is compressible. Unable to Visualize GSV s/p ablation LT ASV / GSV appear to have been chemically Varicose veins in mid calf are ablated. noncompressible s/p ablation. GSV appears NONCOMPRESSIBLE. Procedure SSV is noncompressible s/p ablation. Exam performed in department. Ge[employer] Data [employer]ician vein from SSV mid is This is a venous duplex using B-mode, color NONCOMPRESSIBLE. flow and spectral Doppler. Varicose veins in calf are noncompressible Compared to 09/13/2024. s/p ablation. A preliminary report was called and/or faxed to Dr. Jules. VL/Venous Duplex US - García Extrem Interpretation Summary Acute deep vein thrombosis is noted in the right posterior tibial vein. Left no DVT. Bilated GSV ablated. Ordering Physician: Steven Jules Referring Physician: Ramila Landa Performed By: Monet Mcdermott RVT
== END | disposition home or self-care (01) ==
LOC: CVS 08:41
PROVIDERS: PCP Nurse Practitioner Family; Referring Provider Surgery Vascular Surgery; Visit Provider Surgery Vascular Surgery
DX: I82.493 Acute embolism and thrombosis of other specified deep vein of lower extremity, bilateral (principal)
CPT/HCPCS: 93970

== ENCOUNTER → 2024-12-26 | Outpatient (CLI) | payer OTHER, SELFPAY ==
--- NOTE | 2024-12-26 08:01 | VDLE_ITS ---
Reason For Study Reason For Study: Bilateral leg pain RIGHT LEFT CFV is compressible, spontaneous, phasic, competent CFV is compressible, spontaneous, phasic, competent, and demonstrates normal augmentation. and demonstrates normal augmentation. FV is compressible, spontaneous, phasic, competent FV is compressible, spontaneous, phasic, competent and demonstrates normal augmentation. and demonstrates normal augmentation. POP V is compressible, spontaneous, phasic, competent POP V is compressible, spontaneous, phasic, competent and demonstrates normal augmentation. and demonstrates normal augmentation. T/P Trunk is compressible. T/P Trunk is compressible. RT PerV is compressible. PTV is compressible. SFJ is competent and measures 0.56 cm. LT PerV is compressible. Gastroc vein is partially compressible with bright SFJ is INCOMPETENT and measures 0.47 cm. intraluminal echoes, consistent with Chronic DVT. ASV proximal thigh is INCOMPETENT for greater than PTV is partially compressible with bright 0.5 seconds and measures 0.29 x 0.29 cm. intraluminal echoes noted, consistent with Chronic GSV and SSV throughout both appear previously DVT. ablated. Unable to visualize GSV s/p ablation. GSV prox thigh is partially compressible with bright Varicose veins in distal calf are noncompressible s/p intraluminal echoes. ablation. Clusters of varicose veins extend from ASV prox thigh SSV mid calf is competent and measures 0.22 x 0.28 and GSV prox that extend into the calf. cm. Procedure This is a venous duplex using B-mode, color flow and spectral Doppler. Exam performed in department. Patient was scanned in reverse Trendelenburg position during reflux assessment. VL/Venous Duplex US - García Extrem Interpretation Summary Chronic deep vein thrombosis noted in right gastrocnemius vein, posterior tibia l vein. Deep veins of the left lower extremity are patent and compressible segmentally. There is no evidence of left lower extremity deep vein thrombosis. Positive for reflux in the left saphenofemoral junction, accessory saphenous ve in in thigh Ordering Physician: Kayla Velasquez Referring Physician: Ramila Landa Performed By: Monet Mcdermott RVT
== END | disposition home or self-care (01) ==
LOC: CVS 08:00
PROVIDERS: PCP Nurse Practitioner Family; Referring Provider Physician Assistant; Visit Provider Physician Assistant
DX: I87.2 Venous insufficiency (chronic) (peripheral) (principal); I82.409 Acute embolism and thrombosis of unspecified deep veins of unspecified lower extremity
CPT/HCPCS: 93970

== ENCOUNTER → 2025-04-09 | Outpatient (CLI) | payer OTHER, SELFPAY ==
--- NOTE | 2025-04-09 09:24 | VDLE_ITS ---
Reason For Study Reason For Study: LLE Swelling RIGHT LEFT CFV is compressible, spontaneous, phasic, competent CFV is compressible, spontaneous, phasic, competent, and demonstrates normal augmentation. and demonstrates normal augmentation. Procedure FV is compressible, phasic, and INCOMPETENT for This is a venous duplex using B-mode, color flow and greater than 1.0 second. spectral Doppler. POP V is compressible, phasic, and INCOMPETENT for Exam performed in department. greater than 1.0 second. The study was technically limited. T/P Trunk is compressible. Patient was scanned in reverse Trendelenburg position PTV is compressible. during reflux assessment. LT PerV is compressible. SFJ appears previously ablated 5 cm distal to junction. ASV proximal thigh is INCOMPETENT for greater than 0.5 seconds and measures 0.34 x 0.39 cm. GSV and SSV throughout both appear previously ablated. GSV prox thigh is partially compressible with bright intraluminal echoes. Clusters of varicose veins extend from ASV prox thigh and GSV prox that extend into the calf. ASV mid calf is INCOMPETENT for greater than 0.5 seconds and measures 0.21 cm. VL/Venous Duplex US, Unilateral Interpretation Summary Deep veins of the left lower extremity are patent and compressible segmentally. There is no evidence of left lower extremity deep vein thrombosis. Positive for reflux in the left femoral vein, popliteal vein, accessory sapheno us vein in thigh, accessory saphenous vein in calf. Prior left great saphenous ablation; segments patent with chronic thrombosis no shabana. Ordering Physician: Kayla Velasquez Referring Physician: Ramila Landa Performed By: Alonso Sullivan RVT
== END | disposition home or self-care (01) ==
PROVIDERS: PCP Nurse Practitioner Family; Referring Provider Physician Assistant; Visit Provider Physician Assistant
DX: I87.2 Venous insufficiency (chronic) (peripheral) (principal); R60.0 Localized edema
CPT/HCPCS: 93971

== ENCOUNTER → 2025-09-18 | Outpatient (CLI) | payer OTHER, SELFPAY ==
--- NOTE | 2025-09-18 08:15 | VDLE_ITS ---
Reason For Study Reason For Study: Bilateral leg swelling RIGHT LEFT CFV is compressible, spontaneous, phasic, competent CFV is compressible, spontaneous, phasic, competent, and demonstrates normal augmentation. and demonstrates normal augmentation. FV is compressible, spontaneous, phasic, competent FV is compressible, spontaneous, phasic, competent and demonstrates normal augmentation. and demonstrates normal augmentation. POP V is compressible, spontaneous, phasic, competent POP V is compressible, phasic, and INCOMPETENT for and demonstrates normal augmentation. greater than 1.0 second. T/P Trunk is compressible. T/P Trunk is compressible. PTV is compressible. PTV is compressible. RT PerV is compressible. LT PerV is compressible. Gastroc vein is partially compressible with bright ASV proximal thigh is INCOMPETENT for greater than intraluminal echoes, consistent with Chronic DVT. 0.5 seconds and measures 0.34 x 0.39 cm. Unable to visualize GSV s/p ablation. GSV and SSV throughout both appear previously SSV mid calf is competent and measures 0.26 x 0.28 ablated. cm. GSV prox thigh is partially compressible with bright Procedure intraluminal echoes. This is a venous duplex using B-mode, color flow and Clusters of varicose veins extend from ASV prox thigh spectral Doppler. and GSV prox that extend into the calf. Exam performed in department. Patient was scanned in reverse Trendelenburg position during reflux assessment. VL/Venous Duplex US - García Extrem Interpretation Summary Right gastroc chronic dvt. Left ASV 3.9mm with reflux. Left popliteal with refl ux. Ordering Physician: Steven Jules Referring Physician: Ramila Landa Performed By: Monet Mcdermott RVT
== END | disposition home or self-care (01) ==
LOC: CVS 08:11
PROVIDERS: PCP Nurse Practitioner Family; Referring Provider Surgery Vascular Surgery; Visit Provider Surgery Vascular Surgery
DX: I82.491 Acute embolism and thrombosis of other specified deep vein of right lower extremity (principal); I82.492 Acute embolism and thrombosis of other specified deep vein of left lower extremity; I83.893 Varicose veins of bilateral lower extremities with other complications; M79.606 Pain in leg, unspecified; M79.89 Other specified soft tissue disorders
CPT/HCPCS: 93970